=== PATIENT | female | born 1945 | race Caucasian/White ===

== ENCOUNTER 2017-01-31 11:59 | Emergency (ER) | payer MEDICARE, OTHER ==
[~2017-01-31] VITALS: Ht 154.9 cm; Wt 68.0 kg
[~2017-01-31 11:59] MED LIST: ASPI81TA85 PO; CALCTAB7 PO; CELE40TA PO; FISH120012 PO; HYZA50TA2 PO; MULTCAP11 PO; PRAV80TA PO; VITA400C35 PO; VITA500046 PO; VITA500C24 PO; VITATAB11 PO
[2017-01-31] MEDS ORDERED: NS 1,000 ML IV SCH (12:21)
[2017-01-31] MEDS ORDERED: NS 500 ML IV ONE (12:30)
[2017-01-31 13:09] LABS: BASO % 0.3 % (0.0-1.0); EOS # 0.1 K/mm3 (0.0-0.50); EOS % 0.9 % (0.0-3.0); LARGE UNSTAINED CELL # 0.1 K/mm3 (0.0-0.4); LARGE UNSTAINED CELL % 1.8 % (0.0-4.0); LYMPH # 1.1 K/mm3 (1.5-4.5); LYMPH % 16.4 % (24.0-44.0); MEAN CORPUSCULAR HEMOGLOBIN 34.5 pg (27.0-33.0); MEAN CORPUSCULAR HGB CONC 33.7 g/dl (32.0-36.5); MEAN CORPUSCULAR VOLUME 102.6 fl (80.0-96.0); MONO # 0.5 K/mm3 (0.0-0.8); MONO % 7.8 % (0.0-5.0); NEUTROPHILS # 4.8 K/mm3 (1.8-7.7); NEUTROPHILS % 72.8 % (36.0-66.0); PLATELET COUNT, AUTOMATED 231 k/mm3 (150-450); RED CELL DISTRIBUTION WIDTH 12.5 % (11.5-14.5); WHITE BLOOD COUNT 6.5 K/mm3 (4.0-10.0)
--- NOTE | 2017-01-31 13:34 | REP ---
PA and lateral chest: Comparison is the 11/26/2010. Lung hall are clear. Cardiac size is normal. The min, mediastinum, bony thorax unremarkable. There is a large hiatal hernia. Impression: No acute cardiopulmonary findings. Large hiatal hernia. Signed by Matteo Ramirez MD 01/31/2017 01:25 P
--- NOTE | 2017-01-31 13:36 | REP ---
CT of the brain without IV contrast: There are no comparisons. There is no hemorrhage. The cortical stripe is unremarkable. The ventricles are normal size and midline. There is no edema, mass effect or midline shift. The visualized paranasal sinuses and mastoid cells are clear. Impression: There is no hemorrhage, acute infarct or mass. Negative CT study of the brain. Signed by Matteo Ramirez MD 01/31/2017 01:28 P
[2017-01-31 13:50] LABS: ALBUMIN 3.7 GM/DL (3.2-5.2); ALBUMIN/GLOBULIN RATIO 0.95 (1.00-1.93); ALKALINE PHOSPHATASE 68 U/L (45-117); ALT/SGPT 32 U/L (12-78); ANION GAP 8 MEQ/L (8-16); AST/SGOT 34 U/L (15-37); BILIRUBIN,DIRECT 0.1 MG/DL (0.0-0.2); BILIRUBIN,TOTAL 0.4 MG/DL (0.2-1.0); BLOOD UREA NITROGEN 14 MG/DL (7-18); CALCIUM LEVEL 8.8 MG/DL (8.8-10.2); CARBON DIOXIDE LEVEL 30 MEQ/L (21-32); CHLORIDE LEVEL 100 MEQ/L (98-107); CREATININE FOR GFR 0.72 MG/DL (0.55-1.02); GLOMERULAR FILTRATION RATE > 60.0 (>45); GLUCOSE, FASTING 97 MG/DL (80-110); POTASSIUM SERUM 4.1 MEQ/L (3.5-5.1); SODIUM LEVEL 138 MEQ/L (136-145); TOTAL PROTEIN 7.6 GM/DL (6.4-8.2)
[2017-01-31 14:34] VITALS: BP 180/72
--- NOTE | 2017-02-01 07:20 | ECGEPIP ---
Stationary ECG Study [facility] - ED Test Date: 2017-01-31 Pat Name: KRISTEN HOFFMAN Department: Room: - Gender: F [employer]: ILIA : 1945 Requested By: NINFA PETERSON Order Number: [id number] Reading MD: Tasha Carias Measurements Intervals [place] Rate: 61 P: 53 WV: 160 QRS: 2 QRSD: 77 T: 9 QT: 419 QTc: 423 Interpretive Statements SINUS RHYTHM NO PRIOR FOR COMPARISON Electronically Signed On 02-01-2017 7:20:26 EDT by Tasha Carias
== END 2017-01-31 14:35 | disposition home or self-care (01) ==
LOC: M ED 13:03
DX: R41.0 Disorientation, unspecified (principal)
CPT/HCPCS: 70450; 71020; 80048; 80076; 81001; 82550; 82553; 84443; 84484; 85025; 87086; 93005; 93041; 94760; 99284; G0480

== ENCOUNTER → 2017-07-16 | Outpatient (REF) | payer MEDICARE, OTHER ==
[2017-07-16 13:31] LABS: ALBUMIN 3.7 GM/DL (3.2-5.2); ALBUMIN/GLOBULIN RATIO 0.95 (1.00-1.93); ALKALINE PHOSPHATASE 67 U/L (45-117); ALT/SGPT 32 U/L (12-78); ANION GAP 11 MEQ/L (8-16); AST/SGOT 37 U/L (15-37); BILIRUBIN,TOTAL 0.4 MG/DL (0.2-1.0); BLOOD UREA NITROGEN 12 MG/DL (7-18); CALCIUM LEVEL 9.4 MG/DL (8.8-10.2); CARBON DIOXIDE LEVEL 27 MEQ/L (21-32); CHLORIDE LEVEL 103 MEQ/L (98-107); CREATININE FOR GFR 0.57 MG/DL (0.55-1.02); FREE T4 0.89 NG/DL (0.76-1.46); GLOMERULAR FILTRATION RATE > 60.0 (>39); GLUCOSE, FASTING 78 MG/DL (83-110); POTASSIUM SERUM 4.4 MEQ/L (3.5-5.1); SODIUM LEVEL 141 MEQ/L (136-145); TOTAL PROTEIN 7.6 GM/DL (6.4-8.2)
== END ==
LOC: M SFHCPLAZ 08:37
PROVIDERS: ATTEND Nurse Practitioner Family
DX: I10 Essential (primary) hypertension (principal); F41.1 Generalized anxiety disorder; E78.2 Mixed hyperlipidemia; E55.9 Vitamin D deficiency, unspecified

== ENCOUNTER → 2017-07-22 | Outpatient (CLI) | payer MEDICARE, OTHER ==
--- NOTE | 2017-07-22 13:17 | REP ---
Bilateral screening digital mammogram: TE 29 T 26 July 31, 2017. Comparison is 07/15/2016. There is focally dense breast parenchyma in the subareolar zones. The parenchyma is otherwise predominantly adipose. This is unchanged. Code T12. Impression: There is no evidence of malignancy. BIRADS category one negative mammogram. T1 T 25 T 20 Patient letter M1 Dense breasts. Signed by Matteo Ramirez MD 07/22/2017 01:08 P
== END ==
LOC: M WHC 11:22
PROVIDERS: ATTEND Nurse Practitioner Family
DX: Z12.31 Encounter for screening mammogram for malignant neoplasm of breast (principal); E65 Localized adiposity

== ENCOUNTER → 2018-01-12 | Outpatient (REF) | payer MEDICARE, OTHER ==
[2018-01-12 12:35] LABS: ALBUMIN/GLOBULIN RATIO 1.03 (1.00-1.93); ALKALINE PHOSPHATASE 59 U/L (45-117); ALT/SGPT 33 U/L (12-78); ANION GAP 9 MEQ/L (8-16); AST/SGOT 40 U/L (7-37); BILIRUBIN,TOTAL 0.4 MG/DL (0.2-1.0); BLOOD UREA NITROGEN 11 MG/DL (7-18); CALCIUM LEVEL 9.2 MG/DL (8.8-10.2); CARBON DIOXIDE LEVEL 29 MEQ/L (21-32); CHLORIDE LEVEL 102 MEQ/L (98-107); CREATININE FOR GFR 0.65 MG/DL (0.55-1.30); GLOMERULAR FILTRATION RATE > 60.0 (>39); GLUCOSE, FASTING 84 MG/DL (70-100); POTASSIUM SERUM 4.3 MEQ/L (3.5-5.1); SODIUM LEVEL 140 MEQ/L (136-145); TOTAL PROTEIN 7.9 GM/DL (6.4-8.2)
== END ==
LOC: M SFHCPLAZ 08:53
DX: I10 Essential (primary) hypertension (principal); E55.9 Vitamin D deficiency, unspecified
CPT/HCPCS: 80053

== ENCOUNTER → 2018-07-20 | Outpatient (REF) | payer MEDICARE, OTHER ==
[2018-07-20 11:33] LABS: ALBUMIN 3.8 GM/DL (3.2-5.2); ALBUMIN/GLOBULIN RATIO 0.97 (1.00-1.93); ALKALINE PHOSPHATASE 64 U/L (45-117); ALT/SGPT 36 U/L (12-78); ANION GAP 8 MEQ/L (8-16); AST/SGOT 47 U/L (7-37); BILIRUBIN,TOTAL 0.5 MG/DL (0.2-1.0); BLOOD UREA NITROGEN 13 MG/DL (7-18); CALCIUM LEVEL 9.1 MG/DL (8.8-10.2); CARBON DIOXIDE LEVEL 29 MEQ/L (21-32); CHLORIDE LEVEL 101 MEQ/L (98-107); CHOLESTEROL LEVEL 224 MG/DL (<200); CHOLESTEROL RISK RATIO 2.488 (<5); CREATININE FOR GFR 0.67 MG/DL (0.55-1.30); GLOMERULAR FILTRATION RATE > 60.0 (>39); GLUCOSE, FASTING 84 MG/DL (70-100); HDL CHOLESTEROL 90 MG/DL (>40); LDL CHOLESTEROL 107 MG/DL (<100); NON-HDL-C 134 MG/DL; POTASSIUM SERUM 4.2 MEQ/L (3.5-5.1); SODIUM LEVEL 138 MEQ/L (136-145); TOTAL PROTEIN 7.7 GM/DL (6.4-8.2); TRIGLYCERIDES LEVEL 137 MG/DL (<150)
[2018-07-20 12:03] LABS: TOTAL 25(OH) VITAMIN D 52.6 NG/ML (30.0-100.0)
== END ==
LOC: M SFHCPLAZ 08:50
DX: I10 Essential (primary) hypertension (principal); E55.9 Vitamin D deficiency, unspecified
CPT/HCPCS: 80053

== ENCOUNTER → 2018-08-04 | Outpatient (CLI) | payer MEDICARE, OTHER | LOC: M WHC 10:04 | DX: Z12.31 Encounter for screening mammogram for malignant neoplasm of breast (principal); Z80.0 Family history of malignant neoplasm of digestive organs | CPT/HCPCS: 77067 ==

== ENCOUNTER → 2019-02-01 | Outpatient (REF) | payer MEDICARE, OTHER ==
[2019-02-01 12:34] LABS: ALBUMIN 3.8 GM/DL (3.2-5.2); ALT/SGPT 31 U/L (12-78); BILIRUBIN,TOTAL 0.4 MG/DL (0.2-1.0); BLOOD UREA NITROGEN 13 MG/DL (7-18); CALCIUM LEVEL 9.1 MG/DL (8.8-10.2); CARBON DIOXIDE LEVEL 29 MEQ/L (21-32); CHLORIDE LEVEL 103 MEQ/L (98-107); CREATININE FOR GFR 0.65 MG/DL (0.55-1.30); FREE T4 0.89 NG/DL (0.76-1.46); GLOMERULAR FILTRATION RATE > 60.0 (>39); GLUCOSE, FASTING 86 MG/DL (70-100); POTASSIUM SERUM 4.4 MEQ/L (3.5-5.1); SODIUM LEVEL 138 MEQ/L (136-145); TOTAL PROTEIN 7.5 GM/DL (6.4-8.2)
[2019-02-01 12:35] LABS: TOTAL 25(OH) VITAMIN D 53.1 NG/ML (30.0-100.0)
== END ==
LOC: M SFHCPLAZ 08:50
PROVIDERS: ATTEND Nurse Practitioner Family
DX: I10 Essential (primary) hypertension (principal); E78.2 Mixed hyperlipidemia; E55.9 Vitamin D deficiency, unspecified

== ENCOUNTER 2019-07-01 12:29 | Day surgery (SDC) | payer MEDICARE, OTHER ==
[~2019-07-01] VITALS: Ht 154.9 cm; Wt 68.0 kg
[~2019-07-01 12:29] MED LIST changes: +B COTAB3 PO; +CHOL100029 PO; +KP F1200 PO; +MULTCAP PO; +VENL75TA2 PO; +VITA-157 PO
[2019-07-01] MEDS: NS 1,000 ML IV ONE (14:02)
[2019-07-01] MEDS ORDERED: LIDOCAINE 2% INJ 100 MG/5 ML SDV (FOR ANES.) As Ordered ONE (14:06)
[2019-07-01] MEDS ORDERED: PROPOFOL 200 MG/20 ML VIAL As Ordered ONE ×3 (14:06→14:47)
--- NOTE | 2019-07-01 14:58 | ROOR ---
Patient Name: Sydnie Heredia Procedure Date: 07/01/2019 2:18 PM Date of : 1945 Age: 74 Room: [facility] Gender: Female Note Status: Finalized Procedure: Colonoscopy Indications: High risk colon cancer surveillance: Personal history of non-advanced adenoma, Last colonoscopy: March 2016 Providers: Rakan Fairbanks MD Referring MD: Lindsay Pablo NP Requesting Provider: Medicines: Monitored Anesthesia Care Complications: No immediate complications. Procedure: Pre-Anesthesia Assessment: - Prior to the procedure, a History and Physical was performed, and patient medications and allergies were reviewed. The patient is competent. The risks and benefits of the procedure and the sedation options and risks were discussed with the patient. All questions were answered and informed consent was obtained. Patient identification and proposed procedure were verified by the physician, the nurse and the anesthesiologist in the procedure room. Mental Status Examination: alert and oriented. CV Examination: regular rate and rhythm. Prophylactic Antibiotics: The patient does not require prophylactic antibiotics. Prior Anticoagulants: The patient has taken no previous anticoagulant or antiplatelet agents. ASA Grade Assessment: II - A patient with mild systemic disease. After reviewing the risks and benefits, the patient was deemed in satisfactory condition to undergo the procedure. The anesthesia plan was to use monitored anesthesia care (MAC). Immediately prior to administration of medications, the patient was re-assessed for adequacy to receive sedatives. The heart rate, respiratory rate, oxygen saturations, blood pressure, adequacy of pulmonary ventilation, and response to care were monitored throughout the procedure. The physical status of the patient was re-assessed after the procedure. The Colonoscope was introduced through the anus and advanced to the cecum, identified by appendiceal orifice and ileocecal valve. The colonoscopy was performed without difficulty. The patient tolerated the procedure well. The quality of the bowel preparation was excellent. Findings: The perianal and digital rectal examinations were normal. The colon (entire examined portion) appeared normal. Impression: - The entire examined colon is normal. - No specimens collected. Recommendation: - Discharge patient to home. - Resume previous diet. - Continue present medications. Rakan Fairbanks MD Rakan Fairbanks MD 07/01/2019 2:58:10 PM Electronically signed by Rakan Fairbanks MD Number of Addenda: 0 Note Initiated On: 07/01/2019 2:18 PM Estimated Blood Loss: Estimated blood loss: none.
[2019-07-01 15:05] VITALS: BP 123/61
== END 2019-07-01 15:17 | disposition home or self-care (01) ==
LOC: M OPP 12:29
PROVIDERS: ATTEND Surgery
DX: Z12.11 Encounter for screening for malignant neoplasm of colon (principal); Z86.010 Personal history of colon polyps; Z80.0 Family history of malignant neoplasm of digestive organs; Z79.899 Other long term (current) drug therapy; Z88.8 Allergy status to other drugs, medicaments and biological substances; Z87.891 Personal history of nicotine dependence

== ENCOUNTER → 2019-07-26 | Outpatient (REF) | payer MEDICARE, OTHER ==
[2019-07-26 13:02] LABS: ALBUMIN 3.7 GM/DL (3.2-5.2); ALT/SGPT 40 U/L (12-78); BILIRUBIN,TOTAL 0.5 MG/DL (0.2-1.0); BLOOD UREA NITROGEN 10 MG/DL (7-18); CALCIUM LEVEL 9.7 MG/DL (8.8-10.2); CARBON DIOXIDE LEVEL 26 MEQ/L (21-32); CHLORIDE LEVEL 104 MEQ/L (98-107); CHOLESTEROL LEVEL 238 MG/DL (<200); CHOLESTEROL RISK RATIO 2.404 (<5); CREATININE FOR GFR 0.66 MG/DL (0.55-1.30); GLOMERULAR FILTRATION RATE > 60.0 (>39); GLUCOSE, FASTING 78 MG/DL (70-100); HDL CHOLESTEROL 99 MG/DL (>40); LDL CHOLESTEROL 110 MG/DL (<100); NON-HDL-C 139 MG/DL; SODIUM LEVEL 138 MEQ/L (136-145); TOTAL PROTEIN 7.7 GM/DL (6.4-8.2); TRIGLYCERIDES LEVEL 143 MG/DL (<150); URIC ACID 5.7 MG/DL (2.6-6.0)
[2019-07-26 13:19] LABS: MAU/CREAT RATIO 20.4 MCG/MG (0.0-30.0)
== END ==
LOC: M SFHCPLAZ 08:41
PROVIDERS: ATTEND Nurse Practitioner Family
DX: I10 Essential (primary) hypertension (principal); E78.2 Mixed hyperlipidemia; M79.675 Pain in left toe(s)

== ENCOUNTER → 2019-08-03 | Outpatient (REF) | payer MEDICARE, OTHER ==
[2019-08-03 14:08] LABS: BLOOD UREA NITROGEN 11 MG/DL (7-18); CALCIUM LEVEL 9.7 MG/DL (8.8-10.2); CARBON DIOXIDE LEVEL 28 MEQ/L (21-32); CHLORIDE LEVEL 102 MEQ/L (98-107); CREATININE FOR GFR 0.69 MG/DL (0.55-1.30); GLOMERULAR FILTRATION RATE > 60.0 (>39); GLUCOSE, FASTING 90 MG/DL (70-100); POTASSIUM SERUM 3.9 MEQ/L (3.5-5.1); SODIUM LEVEL 137 MEQ/L (136-145)
[2019-08-03 14:13] LABS: OSMOLALITY SERUM 289 MOSM/KG (280-301)
== END ==
LOC: M SFHCPLAZ 11:45
PROVIDERS: ATTEND Family Medicine
DX: R19.7 Diarrhea, unspecified (principal)
CPT/HCPCS: 36415; 80048; 83930; G0463

== ENCOUNTER → 2019-08-10 | Outpatient (REF) | payer MEDICARE, OTHER ==
[2019-08-10 12:27] LABS: CLOSTRIDIUM DIFFICILE PCR NEGATIVE (NEGATIVE)
== END ==
LOC: M SFHCPLAZ 09:44
PROVIDERS: ATTEND Family Medicine
DX: R19.7 Diarrhea, unspecified (principal)

== ENCOUNTER → 2019-08-17 | Outpatient (CLI) | payer MEDICARE, OTHER ==
--- NOTE | 2019-08-17 14:38 | REP ---
Left foot series: Four views. History: Contusion. Findings: Four views of the left foot demonstrate diffuse forefoot swelling. There is a nondisplaced fracture through the proximal end of the first metatarsal. There are transverse nondisplaced fractures of the proximal ends of the second, third, fourth metatarsals. There is also a transversely oriented minimally displaced fracture through the distal end of the second metatarsal. There is a acute slightly impacted fracture of the fifth proximal phalanx. No tarsal bone fracture is seen. Impression: Multiple fractures including first, second, third, and fourth proximal metatarsals as well as the fifth proximal phalanx and the 2nd distal metatarsal. Electronically Signed by Fernie Marlow MD 08/17/2019 02:30 P
--- NOTE | 2019-08-17 14:39 | REP ---
Left ankle: Four views. History: Contusion. Findings: Four views left ankle demonstrate diffuse soft tissue swelling particularly laterally. Ankle mortise is intact. There is a tiny accessory ossicle adjacent to the medial malleolus. No ankle fractures seen. Midfoot swelling is noted. Impression: Diffuse soft tissue swelling. No ankle fracture seen. Electronically Signed by Fernie Marlow MD 08/17/2019 02:31 P
== END ==
LOC: M WUC 10:14
PROVIDERS: ATTEND Physician Assistant
DX: S92.315A Nondisplaced fracture of first metatarsal bone, left foot, initial encounter for closed fracture (principal); S92.325A Nondisplaced fracture of second metatarsal bone, left foot, initial encounter for closed fracture; S92.335A Nondisplaced fracture of third metatarsal bone, left foot, initial encounter for closed fracture; S92.345A Nondisplaced fracture of fourth metatarsal bone, left foot, initial encounter for closed fracture; S92.322A Displaced fracture of second metatarsal bone, left foot, initial encounter for closed fracture; S92.592A Other fracture of left lesser toe(s), initial encounter for closed fracture; X58.XXXA Exposure to other specified factors, initial encounter; Y92.9 Unspecified place or not applicable; M25.472 Effusion, left ankle; S90.32XA Contusion of left foot, initial encounter; S90.02XA Contusion of left ankle, initial encounter

== ENCOUNTER → 2019-10-06 | Outpatient (CLI) | payer MEDICARE, OTHER ==
--- NOTE | 2019-10-06 14:35 | REPMRS ---
Patient History The patient states she had a clinical breast exam in August 2019.Family history of colorectal cancer at age 89 in mother. 3D TOMOSYNTHESIS WAS PERFORMED. [facility] for [facility] 3.7%. Digital Woman Screen Mammo: October 06, 2019 - Exam #: [id number] Bilateral CC and MLO view(s) were taken. Technologist: Rach Farnsworth, Technologist Prior study comparison: August 04, 2018, bilateral digital woman screen mammo performed at [facility], [place]. July 22, 2017, digital woman screen mammo performed at [facility], [place]. FINDINGS: There are scattered fibroglandular densities. There has been no change in the appearance of the mammogram from the prior studies. There is a mild amount of residual fibroglandular tissue which is fairly symmetric. There is no interval development of dominant mass, architectural distortion, or clustered microcalcification suggestive of malignancy. Assessment: BI-RADS/ACR category 1 mammogram. Negative Mammogram. Recommendation Routine screening mammogram in 1 year (for women over age 40). This mammogram was interpreted with the aid of an FDA-approved computer-aided dectection system. Electronically Signed By: Matteo Daniels MD 10/06/19 [id number]
--- NOTE | 2019-10-10 13:11 | DEXA ---
AP SPINE L1 - L4 1.284 0.7 2.4 LT FEMUR TOTAL 1.010 0.0 1.6 LT NECK 0.870 -1.2 0.6 RT FEMUR TOTAL 1.037 0.2 1.8 RT NECK 0.906 -1.0 0.9 TOTAL BODY TOTAL OTHER COMMENTS: Normal bone densitometry of the spine. There is low bone density of the hips. The increased density of the spine does represent a significant change. The increased density of the left hip does represent a significant change. The decreased density of the right hip does not represent a significant change. The density of the spine has increased 7.4% since the initial exam on 03/03/2002. The spine density has increased 5.0% since the most recent exam on 07/07/2014. The density of the left hip has increased 10.6% since the initial exam on 03/03/2002. The density of the left hip has increased 2.3% since the most recent exam on 07/07/2014. The density of the right hip has increased 12.4% since the initial exam on 03/03/2002. The density of the right hip has decreased 1.0% since the most recent exam on 07/07/2014. FOLLOW-UP: Recommendation for the next bone density exam: 2 years. TEZ
== END ==
LOC: M WHC 13:42
PROVIDERS: ATTEND Nurse Practitioner Family
DX: Z12.31 Encounter for screening mammogram for malignant neoplasm of breast (principal); M85.9 Disorder of bone density and structure, unspecified

== ENCOUNTER → 2020-02-24 | Outpatient (REF) | payer MEDICARE, OTHER ==
[2020-02-24 10:56] LABS: ALBUMIN 3.7 GM/DL (3.2-5.2); ALT/SGPT 50 U/L (12-78); BILIRUBIN,TOTAL 0.5 MG/DL (0.2-1.0); BLOOD UREA NITROGEN 10 MG/DL (7-18); CALCIUM LEVEL 9.4 MG/DL (8.8-10.2); CARBON DIOXIDE LEVEL 28 MEQ/L (21-32); CHLORIDE LEVEL 102 MEQ/L (98-107); GLOMERULAR FILTRATION RATE > 60.0 (>39); GLUCOSE, FASTING 82 MG/DL (70-100); POTASSIUM SERUM 4.6 MEQ/L (3.5-5.1); SODIUM LEVEL 137 MEQ/L (136-145)
== END ==
LOC: M SFHCPLAZ 08:42
PROVIDERS: ATTEND Nurse Practitioner Family
DX: I10 Essential (primary) hypertension (principal)

== ENCOUNTER → 2020-08-29 | Outpatient (REF) | payer MEDICARE ==
[~2020-08-29] MED LIST changes: -ASPI81TA85 PO; +ASPI81TA86 PO; +CALC-211 PO; -CALCTAB7 PO
[2020-08-29 14:02] LABS: ALBUMIN 3.9 GM/DL (3.2-5.2); ALT/SGPT 34 U/L (12-78); BILIRUBIN,TOTAL 0.5 MG/DL (0.2-1.0); BLOOD UREA NITROGEN 14 MG/DL (7-18); CARBON DIOXIDE LEVEL 28 MEQ/L (21-32); CHLORIDE LEVEL 104 MEQ/L (98-107); CHOLESTEROL LEVEL 228 MG/DL (<200); CREATININE FOR GFR 0.72 MG/DL (0.55-1.30); GLOMERULAR FILTRATION RATE > 60.0 (>39); GLUCOSE, FASTING 88 MG/DL (70-100); HDL CHOLESTEROL 76 MG/DL (>40); LDL CHOLESTEROL 118 MG/DL (<100); NON-HDL-C 152 MG/DL; POTASSIUM SERUM 4.3 MEQ/L (3.5-5.1); SODIUM LEVEL 139 MEQ/L (136-145); TOTAL PROTEIN 7.8 GM/DL (6.4-8.2); TRIGLYCERIDES LEVEL 169 MG/DL (<150)
== END ==
LOC: M PLALAB 09:18
PROVIDERS: ATTEND Nurse Practitioner Family
DX: R79.89 Other specified abnormal findings of blood chemistry (principal); E78.2 Mixed hyperlipidemia; E55.9 Vitamin D deficiency, unspecified

== ENCOUNTER → 2020-11-26 | Outpatient (REF) | payer MEDICARE ==
[2020-11-26 14:40] LABS: BLOOD UREA NITROGEN 12 MG/DL (7-18); CALCIUM LEVEL 10.4 MG/DL (8.8-10.2); CARBON DIOXIDE LEVEL 31 MEQ/L (21-32); CHLORIDE LEVEL 98 MEQ/L (98-107); CREATININE FOR GFR 0.78 MG/DL (0.55-1.30); GLOMERULAR FILTRATION RATE > 60.0 (>39); GLUCOSE, FASTING 96 MG/DL (70-100); POTASSIUM SERUM 4.5 MEQ/L (3.5-5.1); SODIUM LEVEL 137 MEQ/L (136-145)
== END ==
LOC: M PLALAB 10:16
PROVIDERS: ATTEND Nurse Practitioner Family
DX: I10 Essential (primary) hypertension (principal)

== ENCOUNTER → 2021-02-14 | Outpatient (REF) | payer MEDICARE ==
[~2021-02-14] MED LIST changes: -VITA-157 PO; +VITAE40CA PO
[2021-02-14 13:31] LABS: ALT/SGPT 31 U/L (12-78); BLOOD UREA NITROGEN 15 MG/DL (7-18); CALCIUM LEVEL 9.7 MG/DL (8.8-10.2); CARBON DIOXIDE LEVEL 29 MEQ/L (21-32); CHLORIDE LEVEL 102 MEQ/L (98-107); CREATININE FOR GFR 0.76 MG/DL (0.55-1.30); GLOMERULAR FILTRATION RATE > 60.0 (>39); GLUCOSE, FASTING 97 MG/DL (70-100); POTASSIUM SERUM 4.2 MEQ/L (3.5-5.1); SODIUM LEVEL 137 MEQ/L (136-145)
[2021-02-14 13:32] LABS: ALBUMIN 3.7 GM/DL (3.2-5.2); BILIRUBIN,TOTAL 0.5 MG/DL (0.2-1.0); TOTAL PROTEIN 7.4 GM/DL (6.4-8.2)
[2021-02-14 13:35] LABS: CREATININE, URINE 28.6 MG/DL; MALB URINE SIEMENS 5.4 MG/L; MAU/CREAT RATIO 18.8 MCG/MG (0.0-30.0)
== END ==
LOC: M PLALAB 09:35
PROVIDERS: ATTEND Nurse Practitioner Family
DX: I10 Essential (primary) hypertension (principal)

== ENCOUNTER → 2022-03-03 | Outpatient (CLI) | payer MEDICARE ==
[~2022-03-03] MED LIST changes: +BISO5TAB14 PO; +LOSA100T5 PO
== END ==
LOC: M WUC 08:39
PROVIDERS: ATTEND Internal Medicine
DX: J98.11 Atelectasis (principal); R05.9 Cough, unspecified; J90 Pleural effusion, not elsewhere classified

== ENCOUNTER → 2022-03-05 | Outpatient (REF) | payer MEDICARE ==
[~2022-03-05] MED LIST changes: -BISO5TAB14 PO; -LOSA100T5 PO
[2022-03-05 12:50] LABS: INR 0.97; PROTHROMBIN TIME 13.3 SECONDS (12.7-14.5)
[2022-03-05 12:51] LABS: PARTIAL THROMBOPLASTIN TIME 32.9 SECONDS (25.9-37.0)
== END ==
LOC: M LAB REF 12:26
PROVIDERS: ATTEND Internal Medicine
DX: J90 Pleural effusion, not elsewhere classified (principal)

== ENCOUNTER → 2022-03-12 | Outpatient (CLI) | payer MEDICARE ==
[~2022-03-12] MED LIST changes: +BISO5TAB14 PO; +LOSA100T5 PO
[2022-03-12 13:30] VITALS: BP 116/73
[2022-03-12 13:45] LABS: SOURCE, BODY FLUID pH PLEURAL
[2022-03-12 14:06] LABS: LDH, BODY FLUID 824 U/L (NOT ESTABLISHED); SOURCE, BODY FLUID GLUCOSE PLEURAL; SOURCE, BODY FLUID LDH PLEURAL; SOURCE, BODY FLUID TOT PROTEIN PLEURAL; TOTAL PROTEIN, BODY FLUID 5.6 G/DL (NOT ESTABLISHED)
[2022-03-12 14:09] LABS: APPEARANCE, BODY FLUID HAZY (CLEAR); PLEURAL FL COLOR YELLOW (COLORLESS); SOURCE, BODY FLUID PLEURAL
== END ==
LOC: M IRPRO 10:01
PROVIDERS: ATTEND Internal Medicine
DX: J90 Pleural effusion, not elsewhere classified (principal)

== ENCOUNTER → 2022-03-19 | Outpatient (CLI) | payer MEDICARE ==
[~2022-03-19] MED LIST changes: +ISOVUE-370 76% 100ML VIAL ONE
== END ==
LOC: M PLAIMG 13:39
PROVIDERS: ATTEND Internal Medicine
DX: C34.91 Malignant neoplasm of unspecified part of right bronchus or lung (principal)
CPT/HCPCS: 71260; Q9967

== ENCOUNTER 2022-03-27 09:02 | Inpatient (IN) | payer MEDICARE ==
[2022-03-27] VITALS (15 sets, daily range): BP systolic 106–163; BP diastolic 57–83
[~2022-03-27 09:02] MED LIST changes: -ISOVUE-370 76% 100ML VIAL ONE; +PRAV80TA2 PO; +PRES10CA2 PO
[2022-03-27] MEDS ORDERED: ACETAMINOPHEN TAB 650MG DOSE (2X325MG) PO PRN (10:15)
[2022-03-27] MEDS ORDERED: HOME MED LIST COMPLETE! XX SCH ×2 (10:50→11:25)
[2022-03-27] MEDS ORDERED: VENL75CA2 PO (11:22)
[2022-03-27 11:35] LABS: HEMATOCRIT 45.9 % (36.0-47.0); HEMOGLOBIN 15.5 g/dl (12.0-15.5); MEAN CORPUSCULAR HGB CONC 33.8 g/dl (32.0-36.5); MEAN CORPUSCULAR VOLUME 97.9 fl (80.0-96.0); PLATELET COUNT, AUTOMATED 339 10^3/uL (150-450); RED BLOOD COUNT 4.69 10^6/uL (4.00-5.40); WHITE BLOOD COUNT 9.1 10^3/uL (4.0-10.0)
[2022-03-27 11:46] LABS: INR 1.02; PROTHROMBIN TIME 13.8 SECONDS (12.7-14.5)
[2022-03-27 11:47] LABS: PARTIAL THROMBOPLASTIN TIME 36.4 SECONDS (25.9-37.0)
[2022-03-27 12:09] LABS: ALT/SGPT 21 U/L (12-78); BILIRUBIN,TOTAL 0.5 MG/DL (0.2-1.0); BLOOD UREA NITROGEN 6 MG/DL (7-18); CALCIUM LEVEL 8.7 MG/DL (8.8-10.2); CARBON DIOXIDE LEVEL 29 MEQ/L (21-32); CHLORIDE LEVEL 96 MEQ/L (98-107); CREATININE FOR GFR 0.58 MG/DL (0.55-1.30); GLOMERULAR FILTRATION RATE > 60.0 (>39); GLUCOSE, FASTING 94 MG/DL (70-100); POTASSIUM SERUM 4.1 MEQ/L (3.5-5.1); SODIUM LEVEL 134 MEQ/L (136-145); TOTAL PROTEIN 7.4 GM/DL (6.4-8.2)
[2022-03-27] MEDS ORDERED: ALBUTEROL SULFATE 2.5 MG/0.5 ML INH NEB SOLN NEB PRN (12:35)
[2022-03-27] MEDS ORDERED: flumazeniL 0.5 MG/5 ML VIAL As Ordered ONE (17:09)
[2022-03-27] MEDS ORDERED: MIDAZOLAM INJ 2MG/2ML VIAL (J2250 PER 1MG) As Ordered ONE (17:10)
[2022-03-27] MEDS ORDERED: LIDOCAINE 1% MDV 20ML VIAL As Ordered ONE (17:11)
[2022-03-27] MEDS ORDERED: MIDAZOLAM INJ 2MG/2ML VIAL (J2250 PER 1MG) IV ONE (17:34)
[2022-03-27] MEDS ORDERED: LIDOCAINE 1% MDV 20ML VIAL SC ONE (17:40)
[2022-03-27] MEDS ORDERED: NORCO, ANEXSIA 5/325MG TABLET (HYDROcodone/ACETAMINOPHEN) PO PRN (18:35)
[2022-03-27] MEDS ORDERED: ONDANSETRON 4MG/2ML VIAL IV PRN (18:35)
[2022-03-27] MEDS ORDERED: PERCOCET 5MG/325MG TAB PO PRN (18:35)
[2022-03-27] MEDS ORDERED: BISACODYL 10 MG SUPP PR PRN (18:35)
[2022-03-27] MEDS ORDERED: LEVALBUTEROL 1.25 MG/0.5 ML CONCENTRATE NEB NEB PRN (18:35)
[2022-03-27 19:22] LABS: LDH LACTATE DEHYDROGENASE 339 U/L (84-246)
[2022-03-27] MEDS: DOCUSATE SODIUM 100MG CAPSULE PO SCH (19:50)
[2022-03-27] MEDS: KETOROLAC 30 MG/ML 1ML VIAL IV SCH (19:51)
[2022-03-27 19:54] LABS: PH BODY FLUID 7.503 UNITS (NOT ESTABLISHED); SOURCE, BODY FLUID pH PLEURAL
[2022-03-27 20:21] LABS: AMYLASE, BODY FLUID 85 U/L (NOT ESTABLISHED); CHOLESTEROL, BODY FLUID 100 MG/DL (NOT ESTABLISHED); LDH, BODY FLUID 870 U/L (NOT ESTABLISHED); SOURCE, BODY FLUID ALBUMIN PLEURAL; SOURCE, BODY FLUID AMYLASE PLEURAL; SOURCE, BODY FLUID CHOL PLEURAL; SOURCE, BODY FLUID GLUCOSE PLEURAL; SOURCE, BODY FLUID LDH PLEURAL; SOURCE, BODY FLUID TOT PROTEIN PLEURAL; SOURCE, BODY FLUID TRIG PLEURAL; TOTAL PROTEIN, BODY FLUID 5.5 G/DL (NOT ESTABLISHED); TRIGLYCERIDE, BODY FLUID 35 MG/DL (NOT ESTABLISHED)
[2022-03-27] MEDS: LEVALBUTEROL 1.25 MG/0.5 ML CONCENTRATE NEB NEB SCH (20:21)
[2022-03-27 20:23] LABS: APPEARANCE, BODY FLUID CLOUDY (CLEAR); PLEURAL FL COLOR AMBER (COLORLESS); SOURCE, BODY FLUID PLEURAL
[2022-03-27] MEDS ORDERED: PRAVASTATIN 20 MG TAB PO SCH (21:00)
[2022-03-27] MEDS ORDERED: bisoproloL fumarate 5 MG TAB PO SCH (21:00)
[2022-03-27] MEDS ORDERED: RAMELTEON 8 MG TAB (ROZEREM) PO PRN (21:15)
[2022-03-28] VITALS: BP 108/56
[2022-03-28] MEDS: LEVALBUTEROL 1.25 MG/0.5 ML CONCENTRATE NEB NEB SCH ×2 (01:01→08:00)
[2022-03-28 04:00] VITALS: BP 116/66
[2022-03-28 05:25] LABS: HEMATOCRIT 40.6 % (36.0-47.0); HEMOGLOBIN 13.6 g/dl (12.0-15.5); MEAN CORPUSCULAR HEMOGLOBIN 33.3 pg (27.0-33.0); MEAN CORPUSCULAR HGB CONC 33.5 g/dl (32.0-36.5); MEAN CORPUSCULAR VOLUME 99.3 fl (80.0-96.0); PLATELET COUNT, AUTOMATED 307 10^3/uL (150-450); RED BLOOD COUNT 4.09 10^6/uL (4.00-5.40); WHITE BLOOD COUNT 7.3 10^3/uL (4.0-10.0)
[2022-03-28 05:50] LABS: ALBUMIN 2.4 GM/DL (3.2-5.2); ALT/SGPT 18 U/L (12-78); BILIRUBIN,TOTAL 0.5 MG/DL (0.2-1.0); BLOOD UREA NITROGEN 17 MG/DL (7-18); CALCIUM LEVEL 8.7 MG/DL (8.8-10.2); CARBON DIOXIDE LEVEL 29 MEQ/L (21-32); CHLORIDE LEVEL 95 MEQ/L (98-107); CREATININE FOR GFR 0.77 MG/DL (0.55-1.30); GLOMERULAR FILTRATION RATE > 60.0 (>39); GLUCOSE, FASTING 97 MG/DL (70-100); SODIUM LEVEL 132 MEQ/L (136-145); TOTAL PROTEIN 6.1 GM/DL (6.4-8.2)
[2022-03-28] MEDS: KETOROLAC 30 MG/ML 1ML VIAL IV SCH ×3 (06:16→11:37)
[2022-03-28 08:00] VITALS: BP 104/59
[2022-03-28] MEDS ORDERED: VENLAFAXINE **XR** 75MG CAPSULE PO SCH (09:00)
[2022-03-28] MEDS: DOCUSATE SODIUM 100MG CAPSULE PO SCH (09:00)
[2022-03-28] MEDS ORDERED: PANTOPRAZOLE 40MG TAB (PROTONIX) PO SCH (09:00)
[2022-03-28] MEDS ORDERED: MOM 30ML SUSPENSION UDC PO SCH (09:00)
[2022-03-28 09:40] LABS: OSMOLALITY URINE 424 MOSM/KG (50-1400)
[2022-03-28 09:54] LABS: SODIUM,RANDOM URINE < 10 MEQ/L
[2022-03-28 12:00] VITALS: BP 101/58
[2022-03-28] MEDS ORDERED: VENTAER INH (12:49)
[2022-03-28] MEDS ORDERED: COLA100C5 PO (12:49)
[2022-03-28] MEDS ORDERED: ACET1TAB55 PO (12:49)
[2022-03-28] MEDS ORDERED: HYDR-3715 PO (12:49)
== END 2022-03-28 13:57 | disposition home health service (06) | DRG 181 ==
LOC: M PCU 10:22
PROVIDERS: ADMIT Internal Medicine; ATTEND Internal Medicine
PROC: 0W9930Z Drainage of Right Pleural Cavity with Drainage Device, Percutaneous Approach (ICD-10-PCS; principal; 2022-03-27)
DX: C34.91 Malignant neoplasm of unspecified part of right bronchus or lung (principal); J91.0 Malignant pleural effusion; E87.1 Hypo-osmolality and hyponatremia; I10 Essential (primary) hypertension; E78.5 Hyperlipidemia, unspecified; F41.9 Anxiety disorder, unspecified; Z90.79 Acquired absence of other genital organ(s); Z87.891 Personal history of nicotine dependence; Z20.822 Contact with and (suspected) exposure to COVID-19; Z79.899 Other long term (current) drug therapy

== ENCOUNTER → 2022-03-31 | Outpatient (CLI) | payer MEDICARE ==
[~2022-03-31] MED LIST changes: +ACET1TAB55 PO; +COLA100C5 PO; +HYDR-3715 PO; +VENL75CA2 PO; +VENTAER INH
== END ==
LOC: M RAD 10:39
PROVIDERS: ATTEND Thoracic Surgery (Cardiothoracic Vascular Surgery)
DX: J90 Pleural effusion, not elsewhere classified (principal)

== ENCOUNTER → 2022-04-07 | Outpatient (CLI) | payer MEDICARE ==
[~2022-04-07] MED LIST changes: +DEXA4TA PO; +FOLI1TAB11 PO; +ONDA-84 PO; +PROC10TA5 PO
== END ==
LOC: M PLARAD 12:11
PROVIDERS: ATTEND Internal Medicine
DX: R91.8 Other nonspecific abnormal finding of lung field (principal)
CPT/HCPCS: 78815; A9552

== ENCOUNTER → 2022-04-09 | Outpatient (CLI) | payer MEDICARE | LOC: M WUC 13:49 | PROVIDERS: ATTEND Thoracic Surgery (Cardiothoracic Vascular Surgery) | DX: R91.8 Other nonspecific abnormal finding of lung field (principal); K44.9 Diaphragmatic hernia without obstruction or gangrene; I51.7 Cardiomegaly; J91.0 Malignant pleural effusion ==

== ENCOUNTER → 2022-04-13 | Outpatient (CLI) | payer MEDICARE | LOC: M LABSMTC 11:23 | PROVIDERS: ATTEND Anesthesiology | DX: Z11.52 Encounter for screening for COVID-19 (principal); Z20.822 Contact with and (suspected) exposure to COVID-19 ==

== ENCOUNTER → 2022-04-16 | Outpatient (CLI) | payer MEDICARE ==
[~2022-04-16] MED LIST changes: +CALC500C16 PO; +DIALTAB2 PO; +FOLI400T13 PO; +LIDOCAINE 1% MDV 20ML VIAL As Ordered ONE; +MIDAZOLAM INJ 2MG/2ML VIAL (J2250 PER 1MG) As Ordered ONE; +NS 1,000 ML IV SCH; +ceFAZolin 2 GM/D5W 50 ML IV BAG (J0690 PER 500MG) As Ordered ONE; +ceFAZolin SOD 2 GM in IV 1 EA IV ONE; +diphenhydrAMINE 50MG/ML VIAL (J1200) As Ordered ONE; +fentaNYL 100 MCG/2 ML INJECTION As Ordered ONE
[2022-04-16 15:00] VITALS: BP 112/80
== END ==
LOC: M IRPRO 10:29
PROVIDERS: ATTEND Internal Medicine Medical Oncology
DX: C34.90 Malignant neoplasm of unspecified part of unspecified bronchus or lung (principal)
CPT/HCPCS: 36561; 99152; 99153; C1769; C1788; C1894; J0690; J1200; J1642; J1644; J2250; J3010

== ENCOUNTER → 2022-05-01 | Outpatient (CLI) | payer MEDICARE ==
[~2022-05-01] MED LIST changes: -LIDOCAINE 1% MDV 20ML VIAL As Ordered ONE; -MIDAZOLAM INJ 2MG/2ML VIAL (J2250 PER 1MG) As Ordered ONE; +MULTIVITAMIN PO; -NS 1,000 ML IV SCH; +XANA0.25 PO; +[UNRECOGNIZED DRUG - OTHER] PO; -ceFAZolin 2 GM/D5W 50 ML IV BAG (J0690 PER 500MG) As Ordered ONE; -ceFAZolin SOD 2 GM in IV 1 EA IV ONE; -diphenhydrAMINE 50MG/ML VIAL (J1200) As Ordered ONE; -fentaNYL 100 MCG/2 ML INJECTION As Ordered ONE
== END ==
LOC: M WUC 08:23
PROVIDERS: ATTEND Thoracic Surgery (Cardiothoracic Vascular Surgery)
DX: C34.2 Malignant neoplasm of middle lobe, bronchus or lung (principal); J91.0 Malignant pleural effusion; Z97.8 Presence of other specified devices; I51.7 Cardiomegaly; K44.9 Diaphragmatic hernia without obstruction or gangrene

== ENCOUNTER → 2022-05-06 | Outpatient (POV) | payer MEDICARE ==
[~2022-05-06] VITALS: Ht 154.9 cm; Wt 72.7 kg
[2022-05-06 10:15] VITALS: BP 159/76
== END ==
LOC: M IRPOV 10:02
PROVIDERS: ATTEND Radiology Diagnostic Radiology
DX: Z45.2 Encounter for adjustment and management of vascular access device (principal)

== ENCOUNTER → 2022-05-23 | Outpatient (CLI) | payer MEDICARE ==
[~2022-05-23] MED LIST changes: +PRESCAP PO; +PROHANCE 279.3MG/ML 15ML VIAL As Ordered ONE
== END ==
LOC: M RAD 12:39
PROVIDERS: ATTEND Nurse Practitioner
DX: C34.90 Malignant neoplasm of unspecified part of unspecified bronchus or lung (principal)
CPT/HCPCS: 70553; A9576

== ENCOUNTER → 2022-05-26 | Outpatient (CLI) | payer MEDICARE ==
[~2022-05-26] MED LIST changes: -PROHANCE 279.3MG/ML 15ML VIAL As Ordered ONE
== END ==
LOC: M LABSMTC 11:13
PROVIDERS: ATTEND Anesthesiology
DX: Z11.52 Encounter for screening for COVID-19 (principal)

== ENCOUNTER 2022-05-28 12:07 | Day surgery (SDC) | payer MEDICARE ==
[~2022-05-28] VITALS: Ht 157.5 cm; Wt 72.8 kg
[~2022-05-28 12:07] MED LIST changes: -PRESCAP PO
[2022-05-28] MEDS ORDERED: PRESCAP PO (12:44)
[2022-05-28] MEDS ORDERED: ceFAZolin SOD 2 GM in IV 1 EA IV ONE (12:45)
[2022-05-28] MEDS ORDERED: MUPIROCIN 2% OINT 22 GM TUBE TOP ONE (12:45)
[2022-05-28] MEDS: NS 1,000 ML IV SCH ×2 (13:05→13:14)
[2022-05-28] MEDS ORDERED: BUPIVACAINE LIPOSOME/PF 1.3% 20ML VIAL (13.3MG/ML)(EXPAREL) As Ordered ONE (13:19)
[2022-05-28 14:25] VITALS: BP 139/66
== END 2022-05-28 14:33 | disposition home or self-care (01) ==
LOC: M SDC 12:07
PROVIDERS: ATTEND Thoracic Surgery (Cardiothoracic Vascular Surgery)
DX: Z46.82 Encounter for fitting and adjustment of non-vascular catheter (principal); C34.2 Malignant neoplasm of middle lobe, bronchus or lung; J91.0 Malignant pleural effusion; F41.9 Anxiety disorder, unspecified; Z87.891 Personal history of nicotine dependence; Z79.899 Other long term (current) drug therapy; Z88.8 Allergy status to other drugs, medicaments and biological substances; I10 Essential (primary) hypertension

== ENCOUNTER → 2022-06-06 | Outpatient (CLI) | payer MEDICARE ==
[~2022-06-06] MED LIST changes: +GASTROGRAFIN SOLUTION 30ML (Q9963) As Ordered ONE; +ISOVUE-370 76% 100ML VIAL As Ordered ONE; +PRESCAP PO
== END ==
LOC: M RAD 13:49
PROVIDERS: ATTEND Internal Medicine Medical Oncology
DX: C34.90 Malignant neoplasm of unspecified part of unspecified bronchus or lung (principal); C22.1 Intrahepatic bile duct carcinoma; R91.8 Other nonspecific abnormal finding of lung field; K44.9 Diaphragmatic hernia without obstruction or gangrene; J98.11 Atelectasis; I70.0 Atherosclerosis of aorta
CPT/HCPCS: 71260; 74177; Q9963; Q9967

== ENCOUNTER → 2022-09-02 | Outpatient (CLI) | payer MEDICARE ==
[~2022-09-02] MED LIST changes: +E-Z-GAS II EFFERVESCENT PACKET (SODIUM BICARB./CITRIC ACID/SIMETHICONE) As Ordered ONE; +E-Z-HD 98% w/w 340GM SUSP BTL As Ordered ONE; +E-Z-PAQUE 96% w/w SUSP 176GM BTL As Ordered ONE; -GASTROGRAFIN SOLUTION 30ML (Q9963) As Ordered ONE; -HYZA50TA2 PO; -ISOVUE-370 76% 100ML VIAL As Ordered ONE; +LOSA-532 PO; +MAGICMW SSP; +OMEP-173
== END ==
LOC: M RAD 08:40
PROVIDERS: ATTEND Otolaryngology
DX: K44.9 Diaphragmatic hernia without obstruction or gangrene (principal); R13.10 Dysphagia, unspecified; K21.9 Gastro-esophageal reflux disease without esophagitis

== ENCOUNTER → 2022-09-08 | Outpatient (CLI) | payer MEDICARE ==
[~2022-09-08] MED LIST changes: -E-Z-GAS II EFFERVESCENT PACKET (SODIUM BICARB./CITRIC ACID/SIMETHICONE) As Ordered ONE; -E-Z-HD 98% w/w 340GM SUSP BTL As Ordered ONE; -E-Z-PAQUE 96% w/w SUSP 176GM BTL As Ordered ONE; +GASTROGRAFIN SOLUTION 30ML As Ordered ONE; +ISOVUE-370 76% 100ML VIAL As Ordered ONE
== END ==
LOC: M RAD 11:19
PROVIDERS: ATTEND Internal Medicine Medical Oncology
DX: C34.2 Malignant neoplasm of middle lobe, bronchus or lung (principal)
CPT/HCPCS: 71260; 74177; Q9963; Q9967

== ENCOUNTER → 2022-10-29 | Outpatient (CLI) | payer MEDICARE ==
[~2022-10-29] MED LIST changes: -GASTROGRAFIN SOLUTION 30ML As Ordered ONE; -ISOVUE-370 76% 100ML VIAL As Ordered ONE
== END ==
LOC: M LABSMTC 10:38
PROVIDERS: ATTEND Anesthesiology
DX: Z01.812 Encounter for preprocedural laboratory examination (principal); Z20.822 Contact with and (suspected) exposure to COVID-19

== ENCOUNTER 2022-11-03 12:31 | Day surgery (SDC) | payer MEDICARE ==
[~2022-11-03] VITALS: Ht 154.9 cm; Wt 72.1 kg
[~2022-11-03 12:31] MED LIST changes: +NS 1,000 ML IV ONE
[2022-11-03 14:20] VITALS: BP 132/68
== END 2022-11-03 14:59 | disposition home or self-care (01) ==
LOC: M OPP 12:31
PROVIDERS: ATTEND Internal Medicine Gastroenterology
DX: C15.5 Malignant neoplasm of lower third of esophagus (principal); K29.70 Gastritis, unspecified, without bleeding; K44.9 Diaphragmatic hernia without obstruction or gangrene; K22.10 Ulcer of esophagus without bleeding; Z79.52 Long term (current) use of systemic steroids; Z79.811 Long term (current) use of aromatase inhibitors; Z79.899 Other long term (current) drug therapy; Z88.4 Allergy status to anesthetic agent; Z88.8 Allergy status to other drugs, medicaments and biological substances; C34.00 Malignant neoplasm of unspecified main bronchus; Z92.21 Personal history of antineoplastic chemotherapy; Z87.891 Personal history of nicotine dependence

== ENCOUNTER → 2022-12-26 | Outpatient (CLI) | payer MEDICARE ==
[~2022-12-26] MED LIST changes: +ATIV1TAB7 PO; +FAMO20TA PO; +GASTROGRAFIN SOLUTION 30ML As Ordered ONE; +ISOVUE-370 76% 100ML VIAL As Ordered ONE; +K-TA1TAB PO; -NS 1,000 ML IV ONE; +PRED20TA PO
== END ==
LOC: M RAD 14:57
PROVIDERS: ATTEND Internal Medicine Medical Oncology
DX: C34.90 Malignant neoplasm of unspecified part of unspecified bronchus or lung (principal)
CPT/HCPCS: 71260; 74160; Q9963; Q9967

== ENCOUNTER → 2023-01-02 | Outpatient (CLI) | payer MEDICARE ==
[~2023-01-02] MED LIST changes: -GASTROGRAFIN SOLUTION 30ML As Ordered ONE; -ISOVUE-370 76% 100ML VIAL As Ordered ONE
== END ==
LOC: M PLARAD 12:22
PROVIDERS: ATTEND Internal Medicine Medical Oncology
DX: C34.90 Malignant neoplasm of unspecified part of unspecified bronchus or lung (principal); R41.0 Disorientation, unspecified

== ENCOUNTER → 2023-01-19 | Outpatient (CLI) | payer MEDICARE ==
[~2023-01-19] MED LIST changes: +ECOT81TA5 PO
== END ==
LOC: M WHC 10:38
PROVIDERS: ATTEND Internal Medicine
DX: Z12.31 Encounter for screening mammogram for malignant neoplasm of breast (principal)

== ENCOUNTER → 2023-01-26 | Outpatient (CLI) | payer MEDICARE ==
[~2023-01-26] MED LIST changes: +FOLI0.4T5 PO; +KEYT1INJ IV
== END ==
LOC: M PLARAD 10:03
PROVIDERS: ATTEND Internal Medicine Medical Oncology
DX: C34.2 Malignant neoplasm of middle lobe, bronchus or lung (principal); C34.11 Malignant neoplasm of upper lobe, right bronchus or lung; J91.0 Malignant pleural effusion
CPT/HCPCS: 78815; A9552

== ENCOUNTER 2023-02-24 09:40 | Day surgery (SDC) | payer MEDICARE ==
[~2023-02-24] VITALS: Ht 154.9 cm; Wt 77.3 kg
[~2023-02-24 09:40] MED LIST changes: +CEFUROXIME 1MG/0.1ML INTRACAMERAL INJ As Ordered ONE; +CYCLOPENTOLATE 1% OPHTH SOLN 2ML BTL OS SCH; -KEYT1INJ IV; +LIDOCAINE 1% SDV 5ML VIAL As Ordered ONE; +OFLOXACIN 0.3 % (OCUFLOX) OPTH SOL 5ML OS SCH; +PHENYLEPHRINE 2.5% OPHTH SOL 2ML OS SCH; +PROPARACAINE 0.5% OPHTH SOL 15ML OS ONE; +TROPICAMIDE 1% OPHTH SOLN 15ML OS SCH
[2023-02-24] MEDS ORDERED: KEYT1INJ IV (10:52)
[2023-02-24] MEDS ORDERED: MIDAZOLAM INJ 2MG/2ML VIAL As Ordered ONE (12:05)
[2023-02-24] MEDS ORDERED: fentaNYL 100 MCG/2 ML INJECTION As Ordered ONE (12:05)
[2023-02-24 12:23] VITALS: BP 145/81
== END 2023-02-24 12:54 | disposition home or self-care (01) ==
LOC: M SDC 09:40
PROVIDERS: ATTEND Ophthalmology
DX: H25.12 Age-related nuclear cataract, left eye (principal); I10 Essential (primary) hypertension; E78.5 Hyperlipidemia, unspecified; Z88.8 Allergy status to other drugs, medicaments and biological substances; Z79.899 Other long term (current) drug therapy
CPT/HCPCS: 66984; J0697; J2250; J3010; V2632

== ENCOUNTER 2023-04-07 10:29 | Day surgery (SDC) | payer MEDICARE ==
[~2023-04-07] VITALS: Ht 157.5 cm; Wt 76.2 kg
[~2023-04-07 10:29] MED LIST changes: +ACETYLCHOLINE OPHTH SOLN 1% 2ML (MIOCHOL-E) As Ordered ONE; -CYCLOPENTOLATE 1% OPHTH SOLN 2ML BTL OS SCH; +KETO0.5S4; +KEYT1INJ IV; +MIDAZOLAM INJ 2MG/2ML VIAL As Ordered ONE; +OFLOSO; -OFLOXACIN 0.3 % (OCUFLOX) OPTH SOL 5ML OS SCH; -PHENYLEPHRINE 2.5% OPHTH SOL 2ML OS SCH; +PREDOPD; +PROPARACAINE 0.5% OPHTH SOL 15ML OD ONE; -PROPARACAINE 0.5% OPHTH SOL 15ML OS ONE; -TROPICAMIDE 1% OPHTH SOLN 15ML OS SCH; +VENL150T24 PO; +fentaNYL 100 MCG/2 ML INJECTION As Ordered ONE
[2023-04-07] MEDS: CYCLOPENTOLATE 1% OPHTH SOLN 2ML BTL OD SCH ×2 (11:33→11:38)
[2023-04-07] MEDS: PHENYLEPHRINE 2.5% OPHTH SOL 2ML OD SCH ×2 (11:33→11:38)
[2023-04-07] MEDS: TROPICAMIDE 1% OPHTH SOLN 15ML OD SCH ×2 (11:33→11:38)
[2023-04-07] MEDS: OFLOXACIN 0.3 % (OCUFLOX) OPTH SOL 5ML OD SCH ×2 (11:33→11:38)
[2023-04-07 13:41] VITALS: BP 116/56; TEMP 99.4; O2SAT 94
[2023-04-21] MEDS ORDERED: POTA-151 PO (13:06)
[2023-04-22] MEDS ORDERED: ONDA8TAB8 PO (11:03)
== END 2023-04-07 14:02 | disposition home or self-care (01) ==
LOC: M SDC 10:29
PROVIDERS: ATTEND Ophthalmology
DX: H25.11 Age-related nuclear cataract, right eye (principal); I10 Essential (primary) hypertension; E78.5 Hyperlipidemia, unspecified; Z87.891 Personal history of nicotine dependence; Z88.8 Allergy status to other drugs, medicaments and biological substances; Z79.899 Other long term (current) drug therapy
CPT/HCPCS: 66984; J0697; J2250; J3010; V2632

== ENCOUNTER → 2023-04-23 | Outpatient (CLI) | payer MEDICARE ==
[~2023-04-23] MED LIST changes: -ACETYLCHOLINE OPHTH SOLN 1% 2ML (MIOCHOL-E) As Ordered ONE; -CEFUROXIME 1MG/0.1ML INTRACAMERAL INJ As Ordered ONE; +GASTROGRAFIN SOLUTION 30ML As Ordered ONE; +ISOVUE-370 76% 100ML VIAL As Ordered ONE; -LIDOCAINE 1% SDV 5ML VIAL As Ordered ONE; -MIDAZOLAM INJ 2MG/2ML VIAL As Ordered ONE; +ONDA8TAB8 PO; +POTA-151 PO; -PROPARACAINE 0.5% OPHTH SOL 15ML OD ONE; -fentaNYL 100 MCG/2 ML INJECTION As Ordered ONE
== END ==
LOC: M RAD 10:58
PROVIDERS: ATTEND Internal Medicine Medical Oncology
DX: C34.90 Malignant neoplasm of unspecified part of unspecified bronchus or lung (principal)
CPT/HCPCS: 71260; 74177; Q9963; Q9967

== ENCOUNTER 2023-05-15 13:22 | Observation (INO) | payer MEDICARE ==
[~2023-05-15] VITALS: Ht 157.5 cm; Wt 78.9 kg
[~2023-05-15 13:22] MED LIST changes: -GASTROGRAFIN SOLUTION 30ML As Ordered ONE; -ISOVUE-370 76% 100ML VIAL As Ordered ONE; -OFLOSO; +OFLOSO OS
[2023-05-15 15:15] LABS: BASO % 0.4 % (0.0-1.0); EOS % 0.1 % (0.0-3.0); HEMATOCRIT 41.3 % (36.0-47.0); HEMOGLOBIN 13.8 g/dl (12.0-15.5); LYMPH # 1.1 10^3/uL (1.5-5.0); LYMPH % 14.1 % (24.0-44.0); MEAN CORPUSCULAR HEMOGLOBIN 35.9 pg (27.0-33.0); MEAN CORPUSCULAR HGB CONC 33.4 g/dl (32.0-36.5); MEAN CORPUSCULAR VOLUME 107.6 fl (80.0-96.0); MONO # 1.2 10^3/uL (0.0-0.8); NEUTROPHILS # 5.2 10^3/uL (1.5-8.5); NEUTROPHILS % 69.1 % (36.0-66.0); PLATELET COUNT, AUTOMATED 274 10^3/uL (150-450); RED BLOOD COUNT 3.84 10^6/uL (4.00-5.40); WHITE BLOOD COUNT 7.6 10^3/uL (4.0-10.0)
[2023-05-15 15:44] LABS: LIPASE 31 U/L (12-53)
[2023-05-15 15:45] LABS: CK-MB VALUE MASS 1.9 NG/ML (<3.6)
[2023-05-15 15:47] LABS: ALBUMIN 3.4 G/DL (3.2-5.2); ALKALINE PHOSPHATASE 88 U/L (46-116); ALT/SGPT 42 U/L (7.0-40); AST/SGOT 61 U/L (<34); BILIRUBIN,DIRECT 0.2 MG/DL (<0.4); BILIRUBIN,TOTAL 0.6 MG/DL (0.3-1.2); BLOOD UREA NITROGEN 9 MG/DL (9-23); CALCIUM LEVEL 8.9 MG/DL (8.3-10.6); CARBON DIOXIDE LEVEL 23 MMOL/L (20-31); CHLORIDE LEVEL 98 MMOL/L (98-107); CREATININE FOR GFR 0.68 MG/DL (0.55-1.30); GLOMERULAR FILTRATION RATE > 60.0 (>39); GLUCOSE, FASTING 121 MG/DL (74-106); POTASSIUM SERUM 4.4 MMOL/L (3.5-5.1); SODIUM LEVEL 136 MMOL/L (136-145); TOTAL PROTEIN 6.7 G/DL (5.7-8.2)
[2023-05-15 15:48] LABS: CPK CREATINE PHOSPHOKINASE 88 U/L (34-145); MB/CK RELATIVE INDEX 2.15 (< OR =4)
[2023-05-15] MEDS ORDERED: PROMETHAZINE 25MG/ML 1ML VIAL IV ONE (16:30)
[2023-05-15] MEDS ORDERED: NS 500 ML IV ONE (16:30)
[2023-05-15 16:50] LABS: CK-MB VALUE MASS 1.9 NG/ML (<3.6)
[2023-05-15 16:55] LABS: MB/CK RELATIVE INDEX 2.31 (< OR =4)
[2023-05-15] MEDS: NS 1,000 ML IV SCH (17:36)
[2023-05-15] MEDS: METOPROLOL 5 MG/5 ML VIAL IV SCH ×2 (17:36→17:37)
[2023-05-15] MEDS ORDERED: METOPROLOL TART 25 MG TABLET PO ONE (18:00)
[2023-05-15] MEDS ORDERED: MED REC IN PROGRESS XX SCH (18:25)
[2023-05-15] MEDS ORDERED: ACETAMINOPHEN TAB 650MG DOSE (2X325MG) PO PRN (18:35)
[2023-05-15 19:39] LABS: INR 1.09; PROTHROMBIN TIME 14.3 SECONDS (12.5-14.5)
[2023-05-15 19:40] LABS: PARTIAL THROMBOPLASTIN TIME 31.1 SECONDS (24.8-34.2)
[2023-05-15] MEDS ORDERED: ENOXAPARIN 80MG/0.8ML SYRINGE (J1650 PER 10MG) SC ONE (20:00)
[2023-05-15] MEDS ORDERED: HOME MED LIST COMPLETE! XX SCH (20:30)
[2023-05-15 20:34] VITALS: BP 132/70; TEMP 97.6; O2SAT 96
[2023-05-15] MEDS ORDERED: PROCHLORPERAZINE 5MG TAB PO PRN (20:35)
[2023-05-15] MEDS ORDERED: ONDANSETRON 4MG ORAL DISINTEGRATING TAB PO PRN (20:35)
[2023-05-15 20:40] LABS: THYROXINE (T4) 9.2 UG/DL (4.5-10.9); VITAMIN B12 LEVEL 761 PG/ML (211-911)
[2023-05-15 20:41] LABS: FREE THYROXINE INDEX 3.5 % (1.3-4.8); T UPTAKE 38.5 % (22.5-37.0)
[2023-05-15 20:44] LABS: FOLATE 23.9 NG/ML (>5.4)
[2023-05-15] MEDS: PRAVASTATIN 20 MG TAB PO SCH (21:02)
[2023-05-16] VITALS (7 sets, daily range): BP systolic 123–147; BP diastolic 59–77; TEMP 97.3–98.6; O2SAT 96–99
[2023-05-16] MEDS ORDERED: METOPROLOL TART 25 MG TABLET PO SCH
[2023-05-16] MEDS ORDERED: NS 500 ML IV ONE (01:05)
[2023-05-16] MEDS ORDERED: METOPROLOL 5 MG/5 ML VIAL As Ordered ONE (01:08)
[2023-05-16] MEDS: METOPROLOL 5 MG/5 ML VIAL IV SCH ×6 (01:18→23:32)
[2023-05-16] MEDS ORDERED: METOPROLOL TART 25 MG TABLET PO ONE (02:40)
[2023-05-16] MEDS ORDERED: DIGOXIN INJ 0.5 MG/2 ML AMP IV ONE (03:40)
[2023-05-16 05:17] LABS: HEMATOCRIT 37.1 % (36.0-47.0); HEMOGLOBIN 12.5 g/dl (12.0-15.5); MEAN CORPUSCULAR HEMOGLOBIN 36.9 pg (27.0-33.0); MEAN CORPUSCULAR HGB CONC 33.7 g/dl (32.0-36.5); MEAN CORPUSCULAR VOLUME 109.4 fl (80.0-96.0); PLATELET COUNT, AUTOMATED 229 10^3/uL (150-450); RED BLOOD COUNT 3.39 10^6/uL (4.00-5.40); WHITE BLOOD COUNT 5.6 10^3/uL (4.0-10.0)
[2023-05-16 05:48] LABS: BLOOD UREA NITROGEN 9 MG/DL (9-23); CALCIUM LEVEL 8.4 MG/DL (8.3-10.6); CARBON DIOXIDE LEVEL 26 MMOL/L (20-31); CHLORIDE LEVEL 101 MMOL/L (98-107); CREATININE FOR GFR 0.75 MG/DL (0.55-1.30); GLOMERULAR FILTRATION RATE > 60.0 (>39); GLUCOSE, FASTING 102 MG/DL (74-106); MAGNESIUM LEVEL 1.5 MG/DL (1.8-2.4); POTASSIUM SERUM 4.1 MMOL/L (3.5-5.1); SODIUM LEVEL 138 MMOL/L (136-145)
[2023-05-16] MEDS ORDERED: MAG SULF 1GM/100ML (MAG RUN) 1 GM in IV 1 EA IV ONE ×2 (05:55→08:00)
[2023-05-16] MEDS: NS 1,000 ML IV SCH (05:58)
[2023-05-16] MEDS: METOPROLOL TART 50 MG TAB PO SCH ×3 (05:58→17:29)
[2023-05-16] MEDS ORDERED: ONDANSETRON 4MG 2ML VIAL IV PRN (07:40)
[2023-05-16] MEDS ORDERED: PROMETHAZINE 25MG/ML 1ML VIAL IV PRN (07:40)
[2023-05-16] MEDS: ASPIRIN 81MG ENTERIC TABLET PO SCH (08:00)
[2023-05-16] MEDS: MAGNESIUM OXIDE 400MG TAB (MAG-OX) PO SCH ×3 (08:00→20:06)
[2023-05-16] MEDS: PANTOPRAZOLE 40MG TAB (PROTONIX) PO SCH (08:00)
[2023-05-16] MEDS: CALCIUM CARBONATE 500 MG CHEW U/D PO SCH (08:00)
[2023-05-16] MEDS: VENLAFAXINE **XR** 75MG CAPSULE PO SCH (08:00)
[2023-05-16] MEDS ORDERED: LOSARTAN 50MG TABLET PO SCH (09:00)
[2023-05-16] MEDS: PRAVASTATIN 20 MG TAB PO SCH (20:07)
[2023-05-16] MEDS ORDERED: RAMELTEON 8 MG TAB (ROZEREM) PO PRN (22:05)
[2023-05-17] VITALS (7 sets, daily range): BP systolic 104–146; BP diastolic 59–82; TEMP 97.2–98.5; O2SAT 93–97
[2023-05-17] MEDS: METOPROLOL TART 50 MG TAB PO SCH ×5 (00:20→23:33)
[2023-05-17] MEDS ORDERED: METOPROLOL TART 25 MG TABLET PO ONE (02:30)
[2023-05-17 07:56] LABS: BASO % 0.4 % (0.0-1.0); EOS # 0.3 10^3/uL (0.0-0.5); EOS % 5.6 % (0.0-3.0); HEMATOCRIT 36.8 % (36.0-47.0); HEMOGLOBIN 12.4 g/dl (12.0-15.5); LYMPH # 0.9 10^3/uL (1.5-5.0); LYMPH % 16.3 % (24.0-44.0); MEAN CORPUSCULAR HEMOGLOBIN 36.4 pg (27.0-33.0); MEAN CORPUSCULAR HGB CONC 33.7 g/dl (32.0-36.5); MEAN CORPUSCULAR VOLUME 107.9 fl (80.0-96.0); MONO # 0.9 10^3/uL (0.0-0.8); MONO % 16.7 % (2.0-8.0); NEUTROPHILS # 3.2 10^3/uL (1.5-8.5); NEUTROPHILS % 60.6 % (36.0-66.0); PLATELET COUNT, AUTOMATED 211 10^3/uL (150-450); RED BLOOD COUNT 3.41 10^6/uL (4.00-5.40); WHITE BLOOD COUNT 5.3 10^3/uL (4.0-10.0)
[2023-05-17 08:15] LABS: BLOOD UREA NITROGEN 10 MG/DL (9-23); CALCIUM LEVEL 8.4 MG/DL (8.3-10.6); CARBON DIOXIDE LEVEL 26 MMOL/L (20-31); CHLORIDE LEVEL 101 MMOL/L (98-107); CREATININE FOR GFR 0.71 MG/DL (0.55-1.30); GLOMERULAR FILTRATION RATE > 60.0 (>39); GLUCOSE, FASTING 100 MG/DL (74-106); MAGNESIUM LEVEL 1.9 MG/DL (1.8-2.4); POTASSIUM SERUM 4.1 MMOL/L (3.5-5.1); SODIUM LEVEL 135 MMOL/L (136-145)
[2023-05-17] MEDS: CALCIUM CARBONATE 500 MG CHEW U/D PO SCH (08:33)
[2023-05-17] MEDS: ASPIRIN 81MG ENTERIC TABLET PO SCH (08:33)
[2023-05-17] MEDS: MAGNESIUM OXIDE 400MG TAB (MAG-OX) PO SCH ×3 (08:33→21:22)
[2023-05-17] MEDS: APIXABAN 5 MG TAB (ELIQUIS) PO SCH ×2 (08:33→21:22)
[2023-05-17] MEDS: PANTOPRAZOLE 40MG TAB (PROTONIX) PO SCH (08:33)
[2023-05-17] MEDS: VENLAFAXINE **XR** 75MG CAPSULE PO SCH (08:33)
[2023-05-17] MEDS ORDERED: SODIUM CHLORIDE 0.9% INJ 10 ML SYR IV SCH (09:00)
[2023-05-17] MEDS ORDERED: traZODone 25MG PER 1/2 TABLET PO SCH (20:00)
[2023-05-17] MEDS: PRAVASTATIN 20 MG TAB PO SCH (21:21)
[2023-05-17] MEDS ORDERED: SODIUM CHLORIDE 0.9% INJ 10 ML SYR IV PRN (23:45)
[2023-05-18 04:00] VITALS: BP 128/68; TEMP 98.4; O2SAT 91
[2023-05-18 05:17] LABS: BASO % 0.2 % (0.0-1.0); EOS # 0.3 10^3/uL (0.0-0.5); EOS % 5.8 % (0.0-3.0); HEMOGLOBIN 11.5 g/dl (12.0-15.5); LYMPH # 0.8 10^3/uL (1.5-5.0); LYMPH % 15.8 % (24.0-44.0); MEAN CORPUSCULAR HEMOGLOBIN 36.3 pg (27.0-33.0); MEAN CORPUSCULAR HGB CONC 33.8 g/dl (32.0-36.5); MEAN CORPUSCULAR VOLUME 107.3 fl (80.0-96.0); MONO % 21.6 % (2.0-8.0); NEUTROPHILS # 2.7 10^3/uL (1.5-8.5); PLATELET COUNT, AUTOMATED 182 10^3/uL (150-450); RED BLOOD COUNT 3.17 10^6/uL (4.00-5.40); WHITE BLOOD COUNT 4.8 10^3/uL (4.0-10.0)
[2023-05-18 05:32] LABS: BLOOD UREA NITROGEN 10 MG/DL (9-23); CALCIUM LEVEL 8.3 MG/DL (8.3-10.6); CARBON DIOXIDE LEVEL 27 MMOL/L (20-31); CHLORIDE LEVEL 102 MMOL/L (98-107); CREATININE FOR GFR 0.65 MG/DL (0.55-1.30); GLOMERULAR FILTRATION RATE > 60.0 (>39); GLUCOSE, FASTING 89 MG/DL (74-106); POTASSIUM SERUM 3.7 MMOL/L (3.5-5.1); SODIUM LEVEL 136 MMOL/L (136-145)
[2023-05-18 05:39] VITALS: BP 146/65
[2023-05-18 05:45] VITALS: BP 146/65
[2023-05-18] MEDS: METOPROLOL TART 50 MG TAB PO SCH (05:45)
[2023-05-18 08:00] VITALS: BP 127/69; TEMP 98.3; O2SAT 95
[2023-05-18] MEDS ORDERED: SODIUM CHLORIDE 0.9% INJ 10 ML SYR IV SCH (09:00)
[2023-05-18] MEDS: CALCIUM CARBONATE 500 MG CHEW U/D PO SCH (09:00)
[2023-05-18] MEDS ORDERED: HYDR12CA PO (09:22)
[2023-05-18] MEDS ORDERED: METO100T5 PO (09:22)
[2023-05-18] MEDS ORDERED: ELIQ5TAB PO (09:22)
[2023-05-18] MEDS ORDERED: FUROSEMIDE 40MG/4ML VIAL IV ONE (09:25)
[2023-05-18] MEDS: PANTOPRAZOLE 40MG TAB (PROTONIX) PO SCH (10:16)
[2023-05-18] MEDS: MAGNESIUM OXIDE 400MG TAB (MAG-OX) PO SCH (10:16)
[2023-05-18] MEDS: VENLAFAXINE **XR** 75MG CAPSULE PO SCH (10:17)
[2023-05-18] MEDS: APIXABAN 5 MG TAB (ELIQUIS) PO SCH (10:17)
[2023-05-18] MEDS: ASPIRIN 81MG ENTERIC TABLET PO SCH (10:17)
[2023-05-18] MEDS ORDERED: MAGN400T2 PO (10:51)
[2023-05-20] MEDS ORDERED: OMEP-173 (13:30)
== END 2023-05-18 11:29 | disposition home or self-care (01) ==
LOC: M ED 13:22 → M ED INP 18:47 → M PCU 20:20
PROVIDERS: ADMIT Internal Medicine; ATTEND Internal Medicine
DX: I48.0 Paroxysmal atrial fibrillation (principal); E83.42 Hypomagnesemia; R53.82 Chronic fatigue, unspecified; R53.81 Other malaise; R11.0 Nausea; C34.91 Malignant neoplasm of unspecified part of right bronchus or lung; I10 Essential (primary) hypertension; E78.5 Hyperlipidemia, unspecified; F41.9 Anxiety disorder, unspecified; Z86.73 Personal history of transient ischemic attack (TIA), and cerebral infarction without residual deficits; Z88.8 Allergy status to other drugs, medicaments and biological substances; Z79.899 Other long term (current) drug therapy; Z79.01 Long term (current) use of anticoagulants; Z79.82 Long term (current) use of aspirin; Z87.891 Personal history of nicotine dependence
CPT/HCPCS: 36415; 80048; 83735; 85025; 85027; 93005; 96361; 96365; 96372; 96375; 96376; G0378; J1160; J1940; J3475

== ENCOUNTER 2023-05-28 21:58 | Emergency (ER) | payer MEDICARE ==
[~2023-05-28] VITALS: Ht 154.9 cm; Wt 80.7 kg
[~2023-05-28 21:58] MED LIST changes: +ELIQ5TAB PO; +HYDR12CA PO; +MAGN400T2 PO; +METO100T5 PO
[2023-05-28] MEDS ORDERED: SODIUM CHLORIDE 0.9% INJ 10 ML SYR IV PRN (22:25)
[2023-05-28 23:03] LABS: BASO % 0.6 % (0.0-1.0); EOS # 0.2 10^3/uL (0.0-0.5); EOS % 2.7 % (0.0-3.0); HEMATOCRIT 37.3 % (36.0-47.0); HEMOGLOBIN 12.7 g/dl (12.0-15.5); LYMPH # 1.3 10^3/uL (1.5-5.0); LYMPH % 20.5 % (24.0-44.0); MEAN CORPUSCULAR HEMOGLOBIN 35.9 pg (27.0-33.0); MEAN CORPUSCULAR VOLUME 105.4 fl (80.0-96.0); MONO % 15.8 % (2.0-8.0); NEUTROPHILS # 3.7 10^3/uL (1.5-8.5); NEUTROPHILS % 60.1 % (36.0-66.0); PLATELET COUNT, AUTOMATED 276 10^3/uL (150-450); RED BLOOD COUNT 3.54 10^6/uL (4.00-5.40); WHITE BLOOD COUNT 6.2 10^3/uL (4.0-10.0)
[2023-05-28 23:38] LABS: ALBUMIN 2.6 G/DL (3.2-5.2); ALKALINE PHOSPHATASE 101 U/L (46-116); ALT/SGPT 28 U/L (7.0-40); AST/SGOT 49 U/L (<34); BILIRUBIN,DIRECT 0.1 MG/DL (<0.4); BILIRUBIN,TOTAL 0.3 MG/DL (0.3-1.2); BLOOD UREA NITROGEN 9 MG/DL (9-23); CALCIUM LEVEL 8.4 MG/DL (8.3-10.6); CARBON DIOXIDE LEVEL 25 MMOL/L (20-31); CHLORIDE LEVEL 98 MMOL/L (98-107); CREATININE FOR GFR 0.75 MG/DL (0.55-1.30); GLOMERULAR FILTRATION RATE > 60.0 (>39); GLUCOSE, FASTING 95 MG/DL (74-106); MAGNESIUM LEVEL 1.7 MG/DL (1.8-2.4); SODIUM LEVEL 137 MMOL/L (136-145); TOTAL PROTEIN 5.8 G/DL (5.7-8.2)
[2023-05-28] MEDS ORDERED: KCL 20MEQ IN 100ML SWI (KRUN) 20 MEQ in IV 1 EA IV ONE ×2 (23:50)
[2023-05-28] MEDS ORDERED: MAG SULF 1GM/100ML (MAG RUN) 1 GM in IV 1 EA IV ONE (23:55)
[2023-05-29 01:57] VITALS: BP 108/63; TEMP 98.4; O2SAT 94
== END 2023-05-29 02:07 | disposition home or self-care (01) ==
LOC: M ED 21:58
DX: E83.42 Hypomagnesemia (principal); T50.2X5A Adverse effect of carbonic-anhydrase inhibitors, benzothiadiazides and other diuretics, initial encounter; I10 Essential (primary) hypertension; I48.91 Unspecified atrial fibrillation; E78.5 Hyperlipidemia, unspecified; F41.9 Anxiety disorder, unspecified; Z86.73 Personal history of transient ischemic attack (TIA), and cerebral infarction without residual deficits; Z85.118 Personal history of other malignant neoplasm of bronchus and lung; Z88.8 Allergy status to other drugs, medicaments and biological substances; Z79.01 Long term (current) use of anticoagulants; Z79.899 Other long term (current) drug therapy
CPT/HCPCS: 80048; 80076; 83735; 85025; 96365; 96366; 96367; 99284; J3475

== ENCOUNTER 2023-06-01 19:37 | Inpatient (IN) | payer MEDICARE ==
[~2023-06-01] VITALS: Ht 154.9 cm; Wt 79.0 kg
[2023-06-01 20:32] LABS: BASO # 0.1 10^3/uL (0.0-0.2); BASO % 0.9 % (0.0-1.0); EOS # 0.1 10^3/uL (0.0-0.5); EOS % 2.6 % (0.0-3.0); HEMATOCRIT 40.8 % (36.0-47.0); HEMOGLOBIN 13.7 g/dl (12.0-15.5); LYMPH # 1.4 10^3/uL (1.5-5.0); MEAN CORPUSCULAR HEMOGLOBIN 35.6 pg (27.0-33.0); MEAN CORPUSCULAR HGB CONC 33.6 g/dl (32.0-36.5); MONO % 18.3 % (2.0-8.0); NEUTROPHILS # 2.8 10^3/uL (1.5-8.5); NEUTROPHILS % 51.8 % (36.0-66.0); PLATELET COUNT, AUTOMATED 229 10^3/uL (150-450); RED BLOOD COUNT 3.85 10^6/uL (4.00-5.40); WHITE BLOOD COUNT 5.4 10^3/uL (4.0-10.0)
[2023-06-01 20:49] LABS: INR 1.33; PROTHROMBIN TIME 16.1 SECONDS (12.5-14.5)
[2023-06-01 20:50] LABS: PARTIAL THROMBOPLASTIN TIME 38.7 SECONDS (24.8-34.2)
[2023-06-01 21:10] LABS: THYROID STIMULATING HORMONE 3.079 uIU/ML (0.55-4.78)
[2023-06-01 21:11] LABS: FREE T4 1.12 NG/DL (0.89-1.76)
[2023-06-01 21:34] LABS: BLOOD UREA NITROGEN 10 MG/DL (9-23); CALCIUM LEVEL 8.2 MG/DL (8.3-10.6); CARBON DIOXIDE LEVEL 30 MMOL/L (20-31); CHLORIDE LEVEL 102 MMOL/L (98-107); CPK CREATINE PHOSPHOKINASE 126 U/L (34-145); CREATININE FOR GFR 0.74 MG/DL (0.55-1.30); GLOMERULAR FILTRATION RATE > 60.0 (>39); GLUCOSE, FASTING 86 MG/DL (74-106); MB/CK RELATIVE INDEX 0.79 (< OR =4); POTASSIUM SERUM 4.5 MMOL/L (3.5-5.1); SODIUM LEVEL 140 MMOL/L (136-145)
[2023-06-01] MEDS ORDERED: NS 500 ML IV ONE ×2 (21:35→23:25)
[2023-06-01] MEDS ORDERED: cefTRIAXone SOD 1 GM in D5W MINI-BAG PLUS 50 ML IV ONE (21:35)
[2023-06-01] MEDS ORDERED: AZITHROMYCIN 250MG TABLET PO ONE (21:35)
[2023-06-01 21:41] LABS: MAGNESIUM LEVEL 1.9 MG/DL (1.8-2.4)
[2023-06-01 21:47] LABS: MB/CK RELATIVE INDEX 1.01 (< OR =4)
[2023-06-01 22:47] LABS: RSV AMPLIFICATION NEGATIVE (NEGATIVE)
[2023-06-02] VITALS (7 sets, daily range): BP systolic 138–178; BP diastolic 69–93; TEMP 96.6–98.2; O2SAT 89–93
[2023-06-02] MEDS ORDERED: VITATAB73 PO (00:33)
[2023-06-02] MEDS ORDERED: MAGN400T2 PO (00:33)
[2023-06-02] MEDS ORDERED: CALC1TAB30 PO (00:33)
[2023-06-02] MEDS ORDERED: ELIQ5TAB PO (00:33)
[2023-06-02] MEDS ORDERED: CARB450I12 IV (00:33)
[2023-06-02] MEDS ORDERED: OMEP1CAP73 PO (00:36)
[2023-06-02] MEDS ORDERED: HOME MED LIST COMPLETE! XX SCH (00:40)
[2023-06-02] MEDS ORDERED: HYDR12.55 PO (00:40)
[2023-06-02 01:08] LABS: PROCALCITONIN 0.38 ng/ml
[2023-06-02] MEDS ORDERED: PROCHLORPERAZINE 5MG TAB PO PRN (01:35)
[2023-06-02] MEDS: VENLAFAXINE **XR** 75MG CAPSULE PO SCH ×2 (01:51→20:15)
[2023-06-02] MEDS: APIXABAN 5 MG TAB (ELIQUIS) PO SCH ×3 (01:51→20:15)
[2023-06-02] MEDS ORDERED: guaiFENesin ER 600 MG TAB PO ONE (04:00)
[2023-06-02 05:10] LABS: HEMATOCRIT 36.8 % (36.0-47.0); HEMOGLOBIN 12.4 g/dl (12.0-15.5); MEAN CORPUSCULAR HEMOGLOBIN 35.2 pg (27.0-33.0); MEAN CORPUSCULAR HGB CONC 33.7 g/dl (32.0-36.5); MEAN CORPUSCULAR VOLUME 104.5 fl (80.0-96.0); PLATELET COUNT, AUTOMATED 187 10^3/uL (150-450); RED BLOOD COUNT 3.52 10^6/uL (4.00-5.40); WHITE BLOOD COUNT 5.3 10^3/uL (4.0-10.0)
[2023-06-02 05:25] LABS: BLOOD UREA NITROGEN 10 MG/DL (9-23); CALCIUM LEVEL 7.8 MG/DL (8.3-10.6); CARBON DIOXIDE LEVEL 25 MMOL/L (20-31); CHLORIDE LEVEL 103 MMOL/L (98-107); CREATININE FOR GFR 0.62 MG/DL (0.55-1.30); GLOMERULAR FILTRATION RATE > 60.0 (>39); GLUCOSE, FASTING 75 MG/DL (74-106); POTASSIUM SERUM 3.9 MMOL/L (3.5-5.1); SODIUM LEVEL 140 MMOL/L (136-145)
[2023-06-02] MEDS: MAGNESIUM OXIDE 400MG TAB (MAG-OX) PO SCH (08:46)
[2023-06-02] MEDS: OMEPRAZOLE 20MG CAP PO SCH (08:46)
[2023-06-02] MEDS: guaiFENesin ER 600 MG TAB PO SCH ×2 (08:46→20:15)
[2023-06-02] MEDS ORDERED: dexAMETHasone 4 MG TAB PO SCH (09:00)
[2023-06-02] MEDS: ONDANSETRON 4MG ORAL DISINTEGRATING TAB PO PRN (11:13)
[2023-06-02] MEDS ORDERED: PRAVASTATIN 20 MG TAB PO SCH (21:00)
[2023-06-02] MEDS ORDERED: AZITHROMYCIN 250MG TABLET PO SCH (21:00)
[2023-06-02] MEDS ORDERED: RAMELTEON 8 MG TAB (ROZEREM) PO ONE (21:00)
[2023-06-02] MEDS ORDERED: DOCUSATE SODIUM 100MG CAPSULE PO SCH (21:00)
[2023-06-02] MEDS ORDERED: cefTRIAXone SOD 1 GM in D5W MINI-BAG PLUS 50 ML IV SCH (22:00)
[2023-06-03 03:57] VITALS: BP 159/79; TEMP 97.8; O2SAT 93
[2023-06-03 06:00] VITALS: TEMP 98.1
[2023-06-03] MEDS: ONDANSETRON 4MG ORAL DISINTEGRATING TAB PO PRN ×2 (06:27→11:25)
[2023-06-03 07:40] VITALS: BP 143/82; TEMP 96.7; O2SAT 96
[2023-06-03] MEDS: APIXABAN 5 MG TAB (ELIQUIS) PO SCH (08:46)
[2023-06-03] MEDS: OMEPRAZOLE 20MG CAP PO SCH (08:46)
[2023-06-03] MEDS: guaiFENesin ER 600 MG TAB PO SCH (08:46)
[2023-06-03] MEDS: MAGNESIUM OXIDE 400MG TAB (MAG-OX) PO SCH (08:46)
[2023-06-03] MEDS ORDERED: ACETAMINOPHEN TAB 650MG DOSE (2X325MG) PO PRN (08:55)
[2023-06-03] MEDS ORDERED: CEFD300CAP PO (11:16)
[2023-06-03] MEDS ORDERED: BACI1CAP PO (11:16)
[2023-06-03] MEDS ORDERED: DOXY-444 PO (11:16)
[2023-06-03 11:41] LABS: BASO % 0.3 % (0.0-1.0); EOS # 0.1 10^3/uL (0.0-0.5); EOS % 1.1 % (0.0-3.0); HEMOGLOBIN 13.1 g/dl (12.0-15.5); LYMPH # 0.9 10^3/uL (1.5-5.0); LYMPH % 14.3 % (24.0-44.0); MEAN CORPUSCULAR HEMOGLOBIN 35.3 pg (27.0-33.0); MEAN CORPUSCULAR HGB CONC 33.6 g/dl (32.0-36.5); MEAN CORPUSCULAR VOLUME 105.1 fl (80.0-96.0); MONO % 16.3 % (2.0-8.0); NEUTROPHILS # 4.3 10^3/uL (1.5-8.5); NEUTROPHILS % 67.7 % (36.0-66.0); PLATELET COUNT, AUTOMATED 164 10^3/uL (150-450); RED BLOOD COUNT 3.71 10^6/uL (4.00-5.40); WHITE BLOOD COUNT 6.3 10^3/uL (4.0-10.0)
[2023-06-03 12:10] LABS: BLOOD UREA NITROGEN 8 MG/DL (9-23); CALCIUM LEVEL 8.9 MG/DL (8.3-10.6); CARBON DIOXIDE LEVEL 27 MMOL/L (20-31); CHLORIDE LEVEL 96 MMOL/L (98-107); CREATININE FOR GFR 0.62 MG/DL (0.55-1.30); GLOMERULAR FILTRATION RATE > 60.0 (>39); GLUCOSE, FASTING 108 MG/DL (74-106); POTASSIUM SERUM 3.8 MMOL/L (3.5-5.1); SODIUM LEVEL 134 MMOL/L (136-145)
[2023-06-03 12:11] LABS: ERYTHROCYTE SEDIMENTATION RATE 117 mm/hr (0-30)
[2023-06-03 12:21] LABS: PROCALCITONIN 0.09 ng/ml
[2023-06-04 16:09] LABS: BODY FLUID CULTURE Not indicated. (.); LEGIONELLA ANTIGEN URINE Negative (Negative); ORGANISM ID Not indicated. (.); SPECIMEN SOURCE Urine (.); URINE STREP PNEUMONIAE ANTIGEN Negative (Negative)
== END 2023-06-03 15:10 | disposition home or self-care (01) | DRG 178 ==
LOC: EDBD 19:37 → M ED 19:37 → M ED INP 23:30 → M PCU 06-02 01:25
PROVIDERS: ADMIT Family Medicine; ATTEND General Practice
DX: J15.6 Pneumonia due to other Gram-negative bacteria (principal); C34.2 Malignant neoplasm of middle lobe, bronchus or lung; I10 Essential (primary) hypertension; E78.5 Hyperlipidemia, unspecified; F41.9 Anxiety disorder, unspecified; R29.6 Repeated falls; R11.2 Nausea with vomiting, unspecified; K59.09 Other constipation; K21.9 Gastro-esophageal reflux disease without esophagitis; I95.1 Orthostatic hypotension; Z90.79 Acquired absence of other genital organ(s); Z87.891 Personal history of nicotine dependence; Z79.01 Long term (current) use of anticoagulants; Z79.899 Other long term (current) drug therapy; Z88.8 Allergy status to other drugs, medicaments and biological substances; Z20.822 Contact with and (suspected) exposure to COVID-19; S80.01XA Contusion of right knee, initial encounter; S80.02XA Contusion of left knee, initial encounter; W06.XXXA Fall from bed, initial encounter; Y92.009 Unspecified place in unspecified non-institutional (private) residence as the place of occurrence of the external cause

== ENCOUNTER → 2023-06-09 | Outpatient (CLI) | payer MEDICARE ==
[~2023-06-09] MED LIST changes: +BACI1CAP PO; +CALC1TAB30 PO; +CARB450I12 IV; +CEFD300CAP PO; +DOXY-444 PO; +HYDR12.55 PO; +OMEP1CAP73 PO; +VITATAB73 PO
== END ==
LOC: M WUC 11:27
PROVIDERS: ATTEND Internal Medicine
DX: R06.02 Shortness of breath (principal); K44.9 Diaphragmatic hernia without obstruction or gangrene; I70.0 Atherosclerosis of aorta

== ENCOUNTER 2023-06-16 13:20 | Inpatient (IN) | payer MEDICARE ==
[~2023-06-16] VITALS: Ht 154.9 cm; Wt 72.7 kg
[2023-06-16] MEDS ORDERED: NS 500 ML IV ONE (13:55)
[2023-06-16] MEDS ORDERED: NS 1,000 ML IV SCH (13:55)
[2023-06-16 14:26] LABS: BASO % 0.6 % (0.0-1.0); EOS # 0.1 10^3/uL (0.0-0.5); EOS % 1.1 % (0.0-3.0); HEMATOCRIT 41.9 % (36.0-47.0); HEMOGLOBIN 13.8 g/dl (12.0-15.5); LYMPH # 0.7 10^3/uL (1.5-5.0); MEAN CORPUSCULAR HEMOGLOBIN 34.4 pg (27.0-33.0); MEAN CORPUSCULAR HGB CONC 32.9 g/dl (32.0-36.5); MEAN CORPUSCULAR VOLUME 104.5 fl (80.0-96.0); MONO % 18.1 % (2.0-8.0); NEUTROPHILS # 3.6 10^3/uL (1.5-8.5); NEUTROPHILS % 66.6 % (36.0-66.0); PLATELET COUNT, AUTOMATED 187 10^3/uL (150-450); RED BLOOD COUNT 4.01 10^6/uL (4.00-5.40); WHITE BLOOD COUNT 5.4 10^3/uL (4.0-10.0)
[2023-06-16 15:03] LABS: LIPASE 123 U/L (12-53)
[2023-06-16 15:05] LABS: ALBUMIN 2.6 G/DL (3.2-5.2); ALKALINE PHOSPHATASE 233 U/L (46-116); ALT/SGPT 139 U/L (7.0-40); AST/SGOT 361 U/L (<34); BILIRUBIN,DIRECT 0.2 MG/DL (<0.4); BILIRUBIN,TOTAL 0.4 MG/DL (0.3-1.2); BLOOD UREA NITROGEN 13 MG/DL (9-23); CARBON DIOXIDE LEVEL 26 MMOL/L (20-31); CHLORIDE LEVEL 98 MMOL/L (98-107); CREATININE FOR GFR 0.72 MG/DL (0.55-1.30); GLOMERULAR FILTRATION RATE > 60.0 (>39); GLUCOSE, FASTING 101 MG/DL (74-106); POTASSIUM SERUM 4.5 MMOL/L (3.5-5.1); SODIUM LEVEL 135 MMOL/L (136-145); TOTAL PROTEIN 6.4 G/DL (5.7-8.2)
[2023-06-16] MEDS ORDERED: ISOVUE-370 76% 100ML VIAL As Ordered ONE (16:06)
[2023-06-16] MEDS ORDERED: METOPROLOL TARTRATE 100MG TAB PO ONE (16:35)
[2023-06-16] MEDS ORDERED: METO200T28 PO (16:37)
[2023-06-16 18:16] LABS: MAGNESIUM LEVEL 1.8 MG/DL (1.8-2.4)
[2023-06-16] MEDS ORDERED: ACETAMINOPHEN TAB 650MG DOSE (2X325MG) PO PRN (18:35)
[2023-06-16] MEDS ORDERED: PROCHLORPERAZINE 10MG 2ML VIAL IV PRN (18:45)
[2023-06-16] MEDS ORDERED: ONDANSETRON 4MG 2ML VIAL IV ONE (18:55)
[2023-06-16] MEDS: LR 1,000 ML IV SCH (19:30)
[2023-06-16] MEDS ORDERED: METO100T5 PO (20:22)
[2023-06-16] MEDS ORDERED: HOME MED LIST COMPLETE! XX SCH (20:25)
[2023-06-16] MEDS ORDERED: ONDANSETRON 4MG 2ML VIAL IV PRN (22:00)
[2023-06-16] MEDS ORDERED: hydrALAZINE 20MG/ML 1ML VIAL IV PRN (22:45)
[2023-06-16] MEDS: PRAVASTATIN 20 MG TAB PO SCH (22:51)
[2023-06-16] MEDS: APIXABAN 5 MG TAB (ELIQUIS) PO SCH (22:51)
[2023-06-16] MEDS: VENLAFAXINE **XR** 75MG CAPSULE PO SCH (22:51)
[2023-06-16] MEDS: PANTOPRAZOLE 40MG TAB (PROTONIX) PO SCH (22:54)
[2023-06-17] MEDS: IPRATROPIUM 0.5MG/ALBUTEROL 2.5MG INH SOL UD 3ML (DUONEB) NEB SCH ×4 (02:34→21:58)
[2023-06-17] MEDS: guaiFENesin ER 600 MG TAB PO SCH ×2 (02:39→20:13)
[2023-06-17] MEDS: LR 1,000 ML IV SCH ×2 (04:55→14:10)
[2023-06-17 06:40] LABS: HEMATOCRIT 38.6 % (36.0-47.0); HEMOGLOBIN 12.8 g/dl (12.0-15.5); MEAN CORPUSCULAR HEMOGLOBIN 34.5 pg (27.0-33.0); MEAN CORPUSCULAR HGB CONC 33.2 g/dl (32.0-36.5); PLATELET COUNT, AUTOMATED 155 10^3/uL (150-450); RED BLOOD COUNT 3.71 10^6/uL (4.00-5.40); WHITE BLOOD COUNT 5.6 10^3/uL (4.0-10.0)
[2023-06-17 07:23] LABS: PROCALCITONIN 0.19 ng/ml
[2023-06-17 07:50] LABS: HEPATITIS B CORE ANTIBODY IGM NEGATIVE (NEGATIVE)
[2023-06-17 07:51] LABS: HEPATITIS C VIRUS ABY INDEX 0.17 INDEX (<0.8)
[2023-06-17 07:53] LABS: ALBUMIN 2.4 G/DL (3.2-5.2); ALKALINE PHOSPHATASE 198 U/L (46-116); ALT/SGPT 101 U/L (7.0-40); AST/SGOT 182 U/L (<34); BILIRUBIN,TOTAL 0.5 MG/DL (0.3-1.2); BLOOD UREA NITROGEN 9 MG/DL (9-23); CALCIUM LEVEL 8.2 MG/DL (8.3-10.6); CARBON DIOXIDE LEVEL 26 MMOL/L (20-31); CHLORIDE LEVEL 102 MMOL/L (98-107); CREATININE FOR GFR 0.61 MG/DL (0.55-1.30); GLOMERULAR FILTRATION RATE > 60.0 (>39); GLUCOSE, FASTING 107 MG/DL (74-106); MAGNESIUM LEVEL 1.5 MG/DL (1.8-2.4); POTASSIUM SERUM 3.8 MMOL/L (3.5-5.1); SODIUM LEVEL 138 MMOL/L (136-145); TOTAL PROTEIN 5.6 G/DL (5.7-8.2)
[2023-06-17] MEDS ORDERED: MAGNESIUM OXIDE 400MG TAB (MAG-OX) PO SCH (09:00)
[2023-06-17] MEDS: DOCUSATE SODIUM 100MG CAPSULE PO SCH ×2 (09:00→20:13)
[2023-06-17] MEDS: FOLIC ACID 1MG TAB PO SCH (09:15)
[2023-06-17] MEDS: PANTOPRAZOLE 40MG TAB (PROTONIX) PO SCH ×2 (09:15→20:11)
[2023-06-17] MEDS: APIXABAN 5 MG TAB (ELIQUIS) PO SCH ×2 (09:16→20:12)
[2023-06-17] MEDS: METOPROLOL TARTRATE 100MG TAB PO SCH ×2 (09:16→20:12)
[2023-06-17] MEDS ORDERED: MIRALAX *UNIT DOSE* 17GM PACKET PO PRN (11:15)
[2023-06-17] MEDS: MAG SULF 1GM/100ML (MAG RUN) 1 GM in IV 1 EA IV SCH ×2 (12:01→13:05)
[2023-06-17 13:45] VITALS: BP 154/76; TEMP 98.1; O2SAT 92
[2023-06-17 18:00] VITALS: BP 152/78; TEMP 97.7; O2SAT 93
[2023-06-17] MEDS: VENLAFAXINE **XR** 75MG CAPSULE PO SCH (20:11)
[2023-06-17] MEDS: MAGNESIUM OXIDE 400MG TAB (MAG-OX) PO SCH (20:11)
[2023-06-17] MEDS: PRAVASTATIN 20 MG TAB PO SCH (20:13)
[2023-06-17] MEDS: SENNA 8.6 MG TAB (SENOKOT) PO SCH (20:13)
[2023-06-17 20:15] VITALS: BP 148/79; TEMP 98.1; O2SAT 95
[2023-06-17] MEDS ORDERED: RAMELTEON 8 MG TAB (ROZEREM) PO PRN (20:55)
[2023-06-18] VITALS (7 sets, daily range): BP systolic 127–140; BP diastolic 74–98; TEMP 96.3–98.6; O2SAT 89–96
[2023-06-18] MEDS: LR 1,000 ML IV SCH (00:08)
[2023-06-18] MEDS: IPRATROPIUM 0.5MG/ALBUTEROL 2.5MG INH SOL UD 3ML (DUONEB) NEB SCH ×4 (01:17→19:19)
[2023-06-18] MEDS ORDERED: METOPROLOL 5 MG/5 ML VIAL IV STA (01:27)
[2023-06-18] MEDS ORDERED: METOPROLOL TART 25 MG TABLET PO ONE ×2 (02:00→18:50)
[2023-06-18 06:45] LABS: HEMATOCRIT 37.8 % (36.0-47.0); HEMOGLOBIN 12.7 g/dl (12.0-15.5); MEAN CORPUSCULAR HEMOGLOBIN 34.6 pg (27.0-33.0); MEAN CORPUSCULAR HGB CONC 33.6 g/dl (32.0-36.5); PLATELET COUNT, AUTOMATED 147 10^3/uL (150-450); RED BLOOD COUNT 3.67 10^6/uL (4.00-5.40); WHITE BLOOD COUNT 6.1 10^3/uL (4.0-10.0)
[2023-06-18 07:04] LABS: ALBUMIN 2.3 G/DL (3.2-5.2); ALKALINE PHOSPHATASE 177 U/L (46-116); ALT/SGPT 80 U/L (7.0-40); AST/SGOT 118 U/L (<34); BILIRUBIN,TOTAL 0.6 MG/DL (0.3-1.2); BLOOD UREA NITROGEN 5 MG/DL (9-23); CALCIUM LEVEL 8.1 MG/DL (8.3-10.6); CARBON DIOXIDE LEVEL 27 MMOL/L (20-31); CHLORIDE LEVEL 98 MMOL/L (98-107); CREATININE FOR GFR 0.57 MG/DL (0.55-1.30); GLOMERULAR FILTRATION RATE > 60.0 (>39); GLUCOSE, FASTING 103 MG/DL (74-106); POTASSIUM SERUM 3.5 MMOL/L (3.5-5.1); SODIUM LEVEL 134 MMOL/L (136-145); TOTAL PROTEIN 5.4 G/DL (5.7-8.2)
[2023-06-18] MEDS: APIXABAN 5 MG TAB (ELIQUIS) PO SCH ×2 (08:54→21:23)
[2023-06-18] MEDS: FOLIC ACID 1MG TAB PO SCH (08:54)
[2023-06-18] MEDS: PANTOPRAZOLE 40MG TAB (PROTONIX) PO SCH ×2 (08:55→21:23)
[2023-06-18] MEDS: MAGNESIUM OXIDE 400MG TAB (MAG-OX) PO SCH ×3 (08:55→21:22)
[2023-06-18] MEDS: METOPROLOL TARTRATE 100MG TAB PO SCH (08:55)
[2023-06-18] MEDS: guaiFENesin ER 600 MG TAB PO SCH ×2 (08:55→21:23)
[2023-06-18] MEDS: DOCUSATE SODIUM 100MG CAPSULE PO SCH ×2 (08:56→21:23)
[2023-06-18 09:06] LABS: MAGNESIUM LEVEL 1.5 MG/DL (1.8-2.4)
[2023-06-18] MEDS ORDERED: MAG SULF 1GM/100ML (MAG RUN) 1 GM in IV 1 EA IV ONE (10:00)
[2023-06-18] MEDS ORDERED: PILL CUTTER 1 EACH XX PRN (17:45)
[2023-06-18] MEDS: PRAVASTATIN 20 MG TAB PO SCH (21:22)
[2023-06-18] MEDS: VENLAFAXINE **XR** 75MG CAPSULE PO SCH (21:22)
[2023-06-18] MEDS: SENNA 8.6 MG TAB (SENOKOT) PO SCH (21:22)
[2023-06-18] MEDS ORDERED: METOPROLOL TART 25 MG TABLET PO SCH (22:00)
[2023-06-19 02:10] VITALS: BP 133/93; TEMP 97.9; O2SAT 94
[2023-06-19] MEDS: IPRATROPIUM 0.5MG/ALBUTEROL 2.5MG INH SOL UD 3ML (DUONEB) NEB SCH ×4 (02:56→19:24)
[2023-06-19 05:32] VITALS: BP 136/96
[2023-06-19] MEDS: METOPROLOL TART 25 MG TABLET PO SCH ×2 (05:33→14:00)
[2023-06-19 06:00] VITALS: BP 134/91; TEMP 97.2; O2SAT 93
[2023-06-19 06:15] LABS: HEMATOCRIT 37.8 % (36.0-47.0); HEMOGLOBIN 12.7 g/dl (12.0-15.5); MEAN CORPUSCULAR HEMOGLOBIN 34.6 pg (27.0-33.0); MEAN CORPUSCULAR HGB CONC 33.6 g/dl (32.0-36.5); PLATELET COUNT, AUTOMATED 130 10^3/uL (150-450); RED BLOOD COUNT 3.67 10^6/uL (4.00-5.40); WHITE BLOOD COUNT 5.8 10^3/uL (4.0-10.0)
[2023-06-19 06:36] LABS: ALBUMIN 2.3 G/DL (3.2-5.2); ALKALINE PHOSPHATASE 173 U/L (46-116); ALT/SGPT 80 U/L (7.0-40); AST/SGOT 114 U/L (<34); BILIRUBIN,TOTAL 0.6 MG/DL (0.3-1.2); BLOOD UREA NITROGEN 7 MG/DL (9-23); CALCIUM LEVEL 8.1 MG/DL (8.3-10.6); CARBON DIOXIDE LEVEL 26 MMOL/L (20-31); CHLORIDE LEVEL 98 MMOL/L (98-107); CREATININE FOR GFR 0.57 MG/DL (0.55-1.30); GLOMERULAR FILTRATION RATE > 60.0 (>39); GLUCOSE, FASTING 93 MG/DL (74-106); MAGNESIUM LEVEL 1.7 MG/DL (1.8-2.4); POTASSIUM SERUM 3.2 MMOL/L (3.5-5.1); SODIUM LEVEL 132 MMOL/L (136-145); TOTAL PROTEIN 5.6 G/DL (5.7-8.2)
[2023-06-19] MEDS ORDERED: POTASSIUM CHLORIDE 10MEQ SR TABLET PO ONE (09:00)
[2023-06-19] MEDS ORDERED: MAG SULF 1GM/100ML (MAG RUN) 1 GM in IV 1 EA IV ONE (09:00)
[2023-06-19] MEDS: NS 1,000 ML IV SCH ×2 (09:33→19:33)
[2023-06-19] MEDS: guaiFENesin ER 600 MG TAB PO SCH ×2 (09:35→21:05)
[2023-06-19] MEDS: FOLIC ACID 1MG TAB PO SCH (09:35)
[2023-06-19] MEDS: APIXABAN 5 MG TAB (ELIQUIS) PO SCH ×2 (09:35→21:05)
[2023-06-19] MEDS: DOCUSATE SODIUM 100MG CAPSULE PO SCH ×2 (09:36→21:05)
[2023-06-19] MEDS: PANTOPRAZOLE 40MG TAB (PROTONIX) PO SCH ×2 (09:36→21:05)
[2023-06-19] MEDS: MAGNESIUM OXIDE 400MG TAB (MAG-OX) PO SCH ×3 (09:36→21:02)
[2023-06-19 10:00] VITALS: BP 110/70; TEMP 97.2; O2SAT 95
[2023-06-19 14:00] VITALS: BP 106/65; TEMP 97.3; O2SAT 94
[2023-06-19 20:50] VITALS: BP 115/61; TEMP 97.7; O2SAT 92
[2023-06-19] MEDS: VENLAFAXINE **XR** 75MG CAPSULE PO SCH (21:03)
[2023-06-19] MEDS: SENNA 8.6 MG TAB (SENOKOT) PO SCH (21:03)
[2023-06-19] MEDS: METOPROLOL TARTRATE 100MG TAB PO SCH (21:05)
[2023-06-19] MEDS: PRAVASTATIN 20 MG TAB PO SCH (21:06)
[2023-06-20 02:00] VITALS: BP 139/76; TEMP 97.9; O2SAT 96
[2023-06-20] MEDS: IPRATROPIUM 0.5MG/ALBUTEROL 2.5MG INH SOL UD 3ML (DUONEB) NEB SCH ×3 (02:56→14:50)
[2023-06-20] MEDS: NS 1,000 ML IV SCH (03:30)
[2023-06-20 05:30] VITALS: BP 135/87; TEMP 98.2; O2SAT 96
[2023-06-20 06:30] LABS: HEMOGLOBIN 12.5 g/dl (12.0-15.5); MEAN CORPUSCULAR HEMOGLOBIN 34.2 pg (27.0-33.0); MEAN CORPUSCULAR HGB CONC 32.1 g/dl (32.0-36.5); MEAN CORPUSCULAR VOLUME 106.6 fl (80.0-96.0); PLATELET COUNT, AUTOMATED 137 10^3/uL (150-450); RED BLOOD COUNT 3.66 10^6/uL (4.00-5.40)
[2023-06-20 07:05] LABS: ALBUMIN 2.2 G/DL (3.2-5.2); ALKALINE PHOSPHATASE 178 U/L (46-116); ALT/SGPT 75 U/L (7.0-40); AST/SGOT 101 U/L (<34); BILIRUBIN,TOTAL 0.6 MG/DL (0.3-1.2); BLOOD UREA NITROGEN 9 MG/DL (9-23); CALCIUM LEVEL 8.1 MG/DL (8.3-10.6); CARBON DIOXIDE LEVEL 27 MMOL/L (20-31); CHLORIDE LEVEL 103 MMOL/L (98-107); CREATININE FOR GFR 0.62 MG/DL (0.55-1.30); GLOMERULAR FILTRATION RATE > 60.0 (>39); GLUCOSE, FASTING 94 MG/DL (74-106); POTASSIUM SERUM 4.3 MMOL/L (3.5-5.1); SODIUM LEVEL 138 MMOL/L (136-145); TOTAL PROTEIN 5.3 G/DL (5.7-8.2)
[2023-06-20] MEDS ORDERED: MIRA1POW3 PO (07:17)
[2023-06-20] MEDS ORDERED: PANT40TA29 PO (07:17)
[2023-06-20] MEDS ORDERED: MAGN400T2 PO (07:17)
[2023-06-20] MEDS ORDERED: COLA100C5 PO (07:17)
[2023-06-20] MEDS: DOCUSATE SODIUM 100MG CAPSULE PO SCH (09:00)
[2023-06-20 09:15] VITALS: BP 130/72
[2023-06-20 09:20] VITALS: BP 130/72
[2023-06-20] MEDS: METOPROLOL TARTRATE 100MG TAB PO SCH (09:20)
[2023-06-20] MEDS: APIXABAN 5 MG TAB (ELIQUIS) PO SCH (09:20)
[2023-06-20] MEDS: guaiFENesin ER 600 MG TAB PO SCH (09:20)
[2023-06-20] MEDS: MAGNESIUM OXIDE 400MG TAB (MAG-OX) PO SCH (09:20)
[2023-06-20] MEDS: FOLIC ACID 1MG TAB PO SCH (09:22)
[2023-06-20] MEDS: PANTOPRAZOLE 40MG TAB (PROTONIX) PO SCH (09:22)
[2023-06-20 10:00] VITALS: BP 137/94; TEMP 97.9; O2SAT 96
[2023-06-20] MEDS ORDERED: ISOVUE-370 76% 100ML VIAL As Ordered ONE (10:57)
== END 2023-06-20 15:24 | disposition home health service (06) | DRG 392 ==
LOC: M ED 13:20 → M ED INP 18:35 → M MSPAV 06-17 13:44
PROVIDERS: ADMIT Internal Medicine; ATTEND Internal Medicine
PROC: B246ZZZ Ultrasonography of Right and Left Heart (ICD-10-PCS; principal; 2023-06-20)
DX: R11.0 Nausea (principal); J91.0 Malignant pleural effusion; C34.91 Malignant neoplasm of unspecified part of right bronchus or lung; E87.1 Hypo-osmolality and hyponatremia; R63.0 Anorexia; R53.1 Weakness; I48.91 Unspecified atrial fibrillation; K44.9 Diaphragmatic hernia without obstruction or gangrene; I10 Essential (primary) hypertension; E78.5 Hyperlipidemia, unspecified; E83.42 Hypomagnesemia; R53.81 Other malaise; F41.9 Anxiety disorder, unspecified; R29.6 Repeated falls; I95.1 Orthostatic hypotension; R74.8 Abnormal levels of other serum enzymes; G25.0 Essential tremor; K21.9 Gastro-esophageal reflux disease without esophagitis; T45.1X5A Adverse effect of antineoplastic and immunosuppressive drugs, initial encounter; R74.01 Elevation of levels of liver transaminase levels; K59.09 Other constipation; E87.6 Hypokalemia; K76.0 Fatty (change of) liver, not elsewhere classified; G47.00 Insomnia, unspecified; Z79.01 Long term (current) use of anticoagulants; Z79.899 Other long term (current) drug therapy; Z87.891 Personal history of nicotine dependence; Z88.8 Allergy status to other drugs, medicaments and biological substances; Z79.69 Long term (current) use of other immunomodulators and immunosuppressants

== ENCOUNTER → 2023-07-07 | Outpatient (CLI) | payer MEDICARE ==
[~2023-07-07] MED LIST changes: +DEXA2TA PO; +DOCU100C16 PO; +METO200T28 PO; +MIRA1POW3 PO; +PANT40TA29 PO; +TUMS750C22 PO
== END ==
LOC: M ONCM 09:09
PROVIDERS: ATTEND Dietitian, Registered
DX: C34.90 Malignant neoplasm of unspecified part of unspecified bronchus or lung (principal); J91.0 Malignant pleural effusion; Z68.32 Body mass index [BMI] 32.0-32.9, adult; Z71.3 Dietary counseling and surveillance

== ENCOUNTER 2023-07-13 11:01 | Inpatient (IN) | payer MEDICARE ==
[~2023-07-13] VITALS: Ht 154.9 cm; Wt 82.0 kg
[~2023-07-13 11:01] MED LIST changes: -DOCU100C16 PO
[2023-07-13] MEDS ORDERED: PANTOPRAZOLE 40MG VIAL IV ONE (13:50)
[2023-07-13] MEDS ORDERED: PROMETHAZINE 25MG/ML 1ML VIAL IV ONE (13:50)
[2023-07-13] MEDS ORDERED: NS 1,000 ML IV ONE (13:50)
[2023-07-13] MEDS: METOPROLOL 5 MG/5 ML VIAL IV PRN ×5 (14:40→18:21)
[2023-07-13 14:49] LABS: BASO % 0.2 % (0.0-1.0); EOS % 0.3 % (0.0-3.0); HEMATOCRIT 41.2 % (36.0-47.0); LYMPH % 6.9 % (24.0-44.0); MEAN CORPUSCULAR HEMOGLOBIN 34.7 pg (27.0-33.0); MEAN CORPUSCULAR VOLUME 102.2 fl (80.0-96.0); MONO % 12.5 % (2.0-8.0); NEUTROPHILS # 11.1 10^3/uL (1.5-8.5); NEUTROPHILS % 79.5 % (36.0-66.0); PLATELET COUNT, AUTOMATED 218 10^3/uL (150-450); RED BLOOD COUNT 4.03 10^6/uL (4.00-5.40)
[2023-07-13 15:03] LABS: INR 1.38; PROTHROMBIN TIME 16.6 SECONDS (12.5-14.5)
[2023-07-13 15:04] LABS: PARTIAL THROMBOPLASTIN TIME 37.2 SECONDS (24.8-34.2)
[2023-07-13 15:11] LABS: MONO # 1.8 10^3/uL (0.0-0.8)
[2023-07-13 15:12] LABS: CK-MB VALUE MASS 1.8 NG/ML (<3.6)
[2023-07-13 15:13] LABS: MB/CK RELATIVE INDEX 3.91 (< OR =4)
[2023-07-13 15:14] LABS: ALBUMIN 2.3 G/DL (3.2-5.2); BILIRUBIN,DIRECT 0.3 MG/DL (<0.4); BILIRUBIN,TOTAL 0.6 MG/DL (0.3-1.2); CALCIUM LEVEL 8.3 MG/DL (8.3-10.6); CREATININE FOR GFR 1.12 MG/DL (0.55-1.30); GLOMERULAR FILTRATION RATE 50.4 (>39); POTASSIUM SERUM 4.7 MMOL/L (3.5-5.1); TOTAL PROTEIN 5.7 G/DL (5.7-8.2)
[2023-07-13] MEDS ORDERED: ISOVUE-370 76% 100ML VIAL As Ordered ONE (15:16)
[2023-07-13 15:51] LABS: RSV AMPLIFICATION NEGATIVE (NEGATIVE)
[2023-07-13] MEDS ORDERED: METOPROLOL TARTRATE 100MG TAB PO ONE (15:55)
[2023-07-13 17:20] LABS: CK-MB VALUE MASS 1.5 NG/ML (<3.6)
[2023-07-13 17:21] LABS: MB/CK RELATIVE INDEX 4.05 (< OR =4)
[2023-07-13] MEDS ORDERED: PROMETHAZINE 25MG/ML 1ML VIAL IV PRN (20:00)
[2023-07-13] MEDS: ONDANSETRON 4MG ORAL DISINTEGRATING TAB SL SCH ×2 (21:37→23:58)
[2023-07-13] MEDS: PANTOPRAZOLE 40MG VIAL IV SCH (21:38)
[2023-07-13 22:28] VITALS: BP 126/59; TEMP 97.8; O2SAT 98
[2023-07-13] MEDS: RAMELTEON 8 MG TAB (ROZEREM) PO PRN (23:58)
[2023-07-14] MEDS ORDERED: DOCU100C16 PO (00:21)
[2023-07-14] MEDS ORDERED: MAGN400T2 PO (00:23)
[2023-07-14] MEDS ORDERED: HOME MED LIST COMPLETE! XX SCH (00:25)
[2023-07-14] MEDS: MICONAZOLE 2 % POWDER (DESENEX) TOP SCH ×3 (00:29→20:11)
[2023-07-14] MEDS: APIXABAN 5 MG TAB (ELIQUIS) PO SCH ×3 (00:47→20:11)
[2023-07-14 04:00] VITALS: BP 137/70; TEMP 96.9; O2SAT 98
[2023-07-14] MEDS ORDERED: SODIUM CHLORIDE 0.9% INJ 10 ML SYR IV PRN (04:30)
[2023-07-14 05:03] LABS: BASO # 0.1 10^3/uL (0.0-0.2); BASO % 0.5 % (0.0-1.0); EOS # 0.4 10^3/uL (0.0-0.5); EOS % 3.4 % (0.0-3.0); HEMOGLOBIN 12.5 g/dl (12.0-15.5); LYMPH # 0.9 10^3/uL (1.5-5.0); LYMPH % 8.5 % (24.0-44.0); MEAN CORPUSCULAR HGB CONC 33.8 g/dl (32.0-36.5); MEAN CORPUSCULAR VOLUME 103.6 fl (80.0-96.0); MONO % 14.2 % (2.0-8.0); NEUTROPHILS % 72.6 % (36.0-66.0); PLATELET COUNT, AUTOMATED 212 10^3/uL (150-450); RED BLOOD COUNT 3.57 10^6/uL (4.00-5.40)
[2023-07-14 05:28] LABS: CALCIUM LEVEL 7.8 MG/DL (8.3-10.6); CREATININE FOR GFR 1.26 MG/DL (0.55-1.30); POTASSIUM SERUM 4.6 MMOL/L (3.5-5.1)
[2023-07-14 05:32] LABS: MONO # 1.6 10^3/uL (0.0-0.8)
[2023-07-14] MEDS: METOPROLOL 5 MG/5 ML VIAL IV PRN (05:36)
[2023-07-14] MEDS: ONDANSETRON 4MG ORAL DISINTEGRATING TAB SL SCH ×4 (06:00→23:58)
[2023-07-14 07:45] VITALS: BP 113/71; TEMP 97.3; O2SAT 99
[2023-07-14] MEDS: PANTOPRAZOLE 40MG VIAL IV SCH ×2 (08:29→20:11)
[2023-07-14] MEDS: METOPROLOL TARTRATE 100MG TAB PO SCH ×2 (08:31→20:14)
[2023-07-14] MEDS: SODIUM CHLORIDE 0.9% INJ 10 ML SYR IV SCH (08:33)
[2023-07-14 08:36] VITALS: O2SAT 96
[2023-07-14] MEDS ORDERED: NYSTATIN CREAM 15GM XX SCH (09:00)
[2023-07-14] MEDS ORDERED: FLEET ENEMA PR ONE (12:00)
[2023-07-14] MEDS: BISACODYL 10MG SUPP PR SCH ×2 (14:59→20:15)
[2023-07-14 15:22] VITALS: BP 100/59; TEMP 97.8; O2SAT 97
[2023-07-14 20:00] VITALS: BP 105/63; TEMP 96.7; O2SAT 99
[2023-07-14] MEDS: SENOKOT S TAB PO SCH (20:12)
[2023-07-14] MEDS: RAMELTEON 8 MG TAB (ROZEREM) PO PRN (20:16)
[2023-07-14 23:47] VITALS: BP 134/64; TEMP 97.3; O2SAT 94
[2023-07-15 04:00] VITALS: BP 90/60; TEMP 96.6; O2SAT 97
[2023-07-15 05:20] LABS: BASO # 0.1 10^3/uL (0.0-0.2); BASO % 0.5 % (0.0-1.0); EOS # 0.4 10^3/uL (0.0-0.5); EOS % 3.8 % (0.0-3.0); HEMATOCRIT 38.3 % (36.0-47.0); HEMOGLOBIN 12.9 g/dl (12.0-15.5); LYMPH # 0.8 10^3/uL (1.5-5.0); MEAN CORPUSCULAR HEMOGLOBIN 34.5 pg (27.0-33.0); MEAN CORPUSCULAR HGB CONC 33.7 g/dl (32.0-36.5); MEAN CORPUSCULAR VOLUME 102.4 fl (80.0-96.0); MONO % 15.6 % (2.0-8.0); NEUTROPHILS # 7.1 10^3/uL (1.5-8.5); PLATELET COUNT, AUTOMATED 229 10^3/uL (150-450); RED BLOOD COUNT 3.74 10^6/uL (4.00-5.40)
[2023-07-15 05:42] LABS: MONO # 1.6 10^3/uL (0.0-0.8)
[2023-07-15] MEDS: ONDANSETRON 4MG ORAL DISINTEGRATING TAB SL SCH ×4 (06:08→23:46)
[2023-07-15 07:55] VITALS: BP 94/66; TEMP 97.8; O2SAT 96
[2023-07-15] MEDS: PANTOPRAZOLE 40MG VIAL IV SCH ×2 (09:07→20:26)
[2023-07-15] MEDS: SENOKOT S TAB PO SCH ×2 (09:08→20:27)
[2023-07-15] MEDS: APIXABAN 5 MG TAB (ELIQUIS) PO SCH ×2 (09:08→18:56)
[2023-07-15] MEDS: SODIUM CHLORIDE 0.9% INJ 10 ML SYR IV SCH (09:08)
[2023-07-15] MEDS: METOPROLOL TARTRATE 100MG TAB PO SCH ×2 (09:08→20:28)
[2023-07-15] MEDS: MICONAZOLE 2 % POWDER (DESENEX) TOP SCH ×2 (09:10→21:00)
[2023-07-15] MEDS ORDERED: FLEET ENEMA PR SCH (11:00)
[2023-07-15] MEDS: ACETAMINOPHEN TAB 650MG DOSE (2X325MG) PO PRN ×2 (11:21→20:26)
[2023-07-15] MEDS: BISACODYL 10MG SUPP PR SCH ×2 (11:29→20:28)
[2023-07-15 12:40] VITALS: BP 112/63; TEMP 96.5; O2SAT 96
[2023-07-15 15:00] VITALS: BP 108/60; TEMP 97.3; O2SAT 96
[2023-07-15 20:06] VITALS: BP 113/64; TEMP 97.7; O2SAT 96
[2023-07-15] MEDS: RAMELTEON 8 MG TAB (ROZEREM) PO PRN (20:26)
[2023-07-16] MEDS ORDERED: MORPHINE 2 MG/ML 1ML VIAL IV ONE ×2 (02:00→20:10)
[2023-07-16 04:54] VITALS: BP 114/63; TEMP 98.1; O2SAT 95
[2023-07-16] MEDS: ONDANSETRON 4MG ORAL DISINTEGRATING TAB SL SCH ×4 (05:09→23:43)
[2023-07-16] MEDS: ACETAMINOPHEN TAB 650MG DOSE (2X325MG) PO PRN (05:34)
[2023-07-16 07:05] LABS: BASO # 0.1 10^3/uL (0.0-0.2); BASO % 0.7 % (0.0-1.0); EOS # 0.5 10^3/uL (0.0-0.5); EOS % 4.9 % (0.0-3.0); HEMATOCRIT 38.4 % (36.0-47.0); LYMPH # 0.8 10^3/uL (1.5-5.0); MEAN CORPUSCULAR HEMOGLOBIN 34.7 pg (27.0-33.0); MEAN CORPUSCULAR HGB CONC 33.9 g/dl (32.0-36.5); MEAN CORPUSCULAR VOLUME 102.4 fl (80.0-96.0); MONO # 1.3 10^3/uL (0.0-0.8); MONO % 14.6 % (2.0-8.0); NEUTROPHILS # 6.3 10^3/uL (1.5-8.5); NEUTROPHILS % 68.9 % (36.0-66.0); PLATELET COUNT, AUTOMATED 242 10^3/uL (150-450); RED BLOOD COUNT 3.75 10^6/uL (4.00-5.40); WHITE BLOOD COUNT 9.1 10^3/uL (4.0-10.0)
[2023-07-16 07:29] LABS: CALCIUM LEVEL 7.8 MG/DL (8.3-10.6); CREATININE FOR GFR 1.08 MG/DL (0.55-1.30); GLOMERULAR FILTRATION RATE 52.5 (>39)
[2023-07-16] MEDS: APIXABAN 5 MG TAB (ELIQUIS) PO SCH (09:00)
[2023-07-16] MEDS ORDERED: LIDOCAINE 5% (LIDODERM) PATCH TD SCH (09:00)
[2023-07-16 09:03] VITALS: BP 107/71
[2023-07-16] MEDS: SENOKOT S TAB PO SCH ×2 (09:14→22:19)
[2023-07-16] MEDS: METOPROLOL TARTRATE 100MG TAB PO SCH ×2 (09:15→22:18)
[2023-07-16] MEDS: SODIUM CHLORIDE 0.9% INJ 10 ML SYR IV SCH (09:15)
[2023-07-16] MEDS: PANTOPRAZOLE 40MG VIAL IV SCH (09:15)
[2023-07-16] MEDS: MICONAZOLE 2 % POWDER (DESENEX) TOP SCH ×2 (09:16→21:00)
[2023-07-16] MEDS ORDERED: ACETAMINOPHEN 500 MG TAB PO PRN (09:55)
[2023-07-16] MEDS ORDERED: KETOROLAC 30 MG/ML 1ML VIAL IV ONE (10:15)
[2023-07-16 14:00] VITALS: BP 104/63; TEMP 97.2; O2SAT 96
[2023-07-16] MEDS ORDERED: traMADol 50 MG TAB PO ONE (16:15)
[2023-07-16] MEDS ORDERED: NAPROXEN 250 MG TAB PO SCH (21:00)
[2023-07-16 21:10] VITALS: BP 112/66; TEMP 96.3; O2SAT 96
[2023-07-16] MEDS: PANTOPRAZOLE 40MG TAB (PROTONIX) PO SCH (22:19)
[2023-07-16] MEDS: ACETAMINOPHEN 500 MG TAB PO SCH (22:20)
[2023-07-17] MEDS ORDERED: MORPHINE 2 MG/ML 1ML VIAL IV ONE (04:00)
[2023-07-17 05:32] VITALS: BP 102/64; TEMP 97; O2SAT 94
[2023-07-17] MEDS: ONDANSETRON 4MG ORAL DISINTEGRATING TAB SL SCH ×3 (05:38→17:12)
[2023-07-17 06:51] LABS: BASO # 0.1 10^3/uL (0.0-0.2); BASO % 0.7 % (0.0-1.0); EOS # 0.5 10^3/uL (0.0-0.5); EOS % 4.3 % (0.0-3.0); HEMATOCRIT 41.3 % (36.0-47.0); LYMPH # 0.8 10^3/uL (1.5-5.0); LYMPH % 7.1 % (24.0-44.0); MEAN CORPUSCULAR HEMOGLOBIN 34.1 pg (27.0-33.0); MEAN CORPUSCULAR HGB CONC 33.9 g/dl (32.0-36.5); MEAN CORPUSCULAR VOLUME 100.7 fl (80.0-96.0); MONO # 1.3 10^3/uL (0.0-0.8); MONO % 12.2 % (2.0-8.0); NEUTROPHILS # 7.9 10^3/uL (1.5-8.5); NEUTROPHILS % 73.6 % (36.0-66.0); PLATELET COUNT, AUTOMATED 283 10^3/uL (150-450); WHITE BLOOD COUNT 10.7 10^3/uL (4.0-10.0)
[2023-07-17 07:07] LABS: CALCIUM LEVEL 7.9 MG/DL (8.3-10.6); CREATININE FOR GFR 1.79 MG/DL (0.55-1.30); GLOMERULAR FILTRATION RATE 29.3 (>39); POTASSIUM SERUM 4.4 MMOL/L (3.5-5.1)
[2023-07-17] MEDS: SENOKOT S TAB PO SCH ×2 (08:46→20:42)
[2023-07-17] MEDS: ACETAMINOPHEN 500 MG TAB PO SCH ×2 (08:47→20:43)
[2023-07-17] MEDS: PANTOPRAZOLE 40MG TAB (PROTONIX) PO SCH ×2 (08:47→20:44)
[2023-07-17] MEDS: traMADol 50 MG TAB PO SCH ×2 (08:48→20:45)
[2023-07-17] MEDS: METOPROLOL TARTRATE 100MG TAB PO SCH ×2 (08:48→21:00)
[2023-07-17] MEDS: SODIUM CHLORIDE 0.9% INJ 10 ML SYR IV SCH (08:49)
[2023-07-17] MEDS: MICONAZOLE 2 % POWDER (DESENEX) TOP SCH ×2 (09:00→22:09)
[2023-07-17] MEDS: LIDOCAINE 5% (LIDODERM) PATCH TD SCH (09:27)
[2023-07-17] MEDS: oxyCODONE 5MG TAB PO PRN (13:15)
[2023-07-17 14:00] VITALS: BP 92/58; TEMP 97.3; O2SAT 95
[2023-07-17] MEDS: MORPHINE 4 MG/ML 1ML VIAL IV PRN (18:55)
[2023-07-17 20:19] VITALS: BP 106/60; TEMP 97.3; O2SAT 93
[2023-07-18] MEDS: ONDANSETRON 4MG ORAL DISINTEGRATING TAB SL SCH ×4 (00:09→17:31)
[2023-07-18] MEDS: oxyCODONE 5MG TAB PO PRN ×2 (00:52→13:39)
[2023-07-18 02:07] VITALS: BP 102/62; TEMP 96.8; O2SAT 92
[2023-07-18 06:00] VITALS: BP 102/63; TEMP 97.3; O2SAT 94
[2023-07-18 06:26] LABS: BASO # 0.1 10^3/uL (0.0-0.2); BASO % 0.5 % (0.0-1.0); EOS # 0.4 10^3/uL (0.0-0.5); EOS % 3.4 % (0.0-3.0); HEMATOCRIT 41.5 % (36.0-47.0); HEMOGLOBIN 14.3 g/dl (12.0-15.5); LYMPH # 0.9 10^3/uL (1.5-5.0); LYMPH % 6.7 % (24.0-44.0); MEAN CORPUSCULAR HEMOGLOBIN 34.8 pg (27.0-33.0); MEAN CORPUSCULAR HGB CONC 34.5 g/dl (32.0-36.5); MONO # 1.4 10^3/uL (0.0-0.8); MONO % 10.7 % (2.0-8.0); NEUTROPHILS # 9.9 10^3/uL (1.5-8.5); NEUTROPHILS % 77.2 % (36.0-66.0); PLATELET COUNT, AUTOMATED 318 10^3/uL (150-450); RED BLOOD COUNT 4.11 10^6/uL (4.00-5.40); WHITE BLOOD COUNT 12.8 10^3/uL (4.0-10.0)
[2023-07-18 06:55] LABS: CALCIUM LEVEL 8.1 MG/DL (8.3-10.6); CREATININE FOR GFR 2.51 MG/DL (0.55-1.30); GLOMERULAR FILTRATION RATE 19.8 (>39); POTASSIUM SERUM 4.3 MMOL/L (3.5-5.1)
[2023-07-18 08:00] VITALS: BP 105/67; TEMP 97.3; O2SAT 95
[2023-07-18] MEDS ORDERED: NS 1,000 ML IV ONE (08:50)
[2023-07-18] MEDS: METOPROLOL TARTRATE 100MG TAB PO SCH ×2 (09:00→21:50)
[2023-07-18] MEDS: SENOKOT S TAB PO SCH ×2 (09:27→21:47)
[2023-07-18] MEDS: PANTOPRAZOLE 40MG TAB (PROTONIX) PO SCH ×2 (09:29→21:48)
[2023-07-18] MEDS: traMADol 50 MG TAB PO SCH ×2 (09:29→21:47)
[2023-07-18] MEDS: ACETAMINOPHEN 500 MG TAB PO SCH ×2 (09:30→21:48)
[2023-07-18] MEDS: LIDOCAINE 5% (LIDODERM) PATCH TD SCH (09:31)
[2023-07-18] MEDS: MICONAZOLE 2 % POWDER (DESENEX) TOP SCH ×2 (09:32→21:50)
[2023-07-18] MEDS: SODIUM CHLORIDE 0.9% INJ 10 ML SYR IV SCH (09:32)
[2023-07-18 14:00] VITALS: BP 105/68; TEMP 97.5; O2SAT 96
[2023-07-18 20:00] VITALS: BP 120/71; TEMP 97.2; O2SAT 93
[2023-07-19] MEDS: oxyCODONE 5MG TAB PO PRN ×2 (00:07→23:55)
[2023-07-19] MEDS: ONDANSETRON 4MG ORAL DISINTEGRATING TAB SL SCH ×5 (05:36→23:25)
[2023-07-19 06:00] VITALS: BP 114/74; TEMP 97.2; O2SAT 92
[2023-07-19 06:10] LABS: BASO # 0.1 10^3/uL (0.0-0.2); BASO % 0.4 % (0.0-1.0); EOS # 0.1 10^3/uL (0.0-0.5); EOS % 1.1 % (0.0-3.0); HEMATOCRIT 41.2 % (36.0-47.0); HEMOGLOBIN 14.4 g/dl (12.0-15.5); LYMPH # 0.8 10^3/uL (1.5-5.0); LYMPH % 6.5 % (24.0-44.0); MEAN CORPUSCULAR HEMOGLOBIN 34.8 pg (27.0-33.0); MEAN CORPUSCULAR VOLUME 99.5 fl (80.0-96.0); MONO # 1.3 10^3/uL (0.0-0.8); MONO % 10.2 % (2.0-8.0); NEUTROPHILS # 10.1 10^3/uL (1.5-8.5); NEUTROPHILS % 79.7 % (36.0-66.0); PLATELET COUNT, AUTOMATED 364 10^3/uL (150-450); RED BLOOD COUNT 4.14 10^6/uL (4.00-5.40); WHITE BLOOD COUNT 12.6 10^3/uL (4.0-10.0)
[2023-07-19 06:40] LABS: CALCIUM LEVEL 8.1 MG/DL (8.3-10.6); CREATININE FOR GFR 2.79 MG/DL (0.55-1.30); GLOMERULAR FILTRATION RATE 17.6 (>39); POTASSIUM SERUM 5.2 MMOL/L (3.5-5.1)
[2023-07-19] MEDS: PANTOPRAZOLE 40MG TAB (PROTONIX) PO SCH ×2 (08:36→20:23)
[2023-07-19] MEDS: SENOKOT S TAB PO SCH ×2 (08:36→20:23)
[2023-07-19] MEDS: ACETAMINOPHEN 500 MG TAB PO SCH ×2 (08:37→20:22)
[2023-07-19] MEDS: METOPROLOL TARTRATE 100MG TAB PO SCH ×2 (08:38→20:32)
[2023-07-19] MEDS: LIDOCAINE 5% (LIDODERM) PATCH TD SCH (08:39)
[2023-07-19] MEDS: traMADol 50 MG TAB PO SCH ×2 (08:39→20:23)
[2023-07-19] MEDS: SODIUM CHLORIDE 0.9% INJ 10 ML SYR IV SCH (08:39)
[2023-07-19] MEDS: MICONAZOLE 2 % POWDER (DESENEX) TOP SCH ×2 (08:43→21:15)
[2023-07-19] MEDS ORDERED: SODIUM BICARBONATE 150 MEQ in STERILE WATER LITER BAG 1,000 ML IV SCH (12:00)
[2023-07-19] MEDS: FUROSEMIDE injection 250 MG in D5W 225 ML IV SCH (12:59)
[2023-07-19] MEDS: SODIUM BICARBONATE 150 MEQ in STERILE WATER LITER BAG 1,000 ML IV SCH ×2 (13:00→23:55)
[2023-07-19] MEDS ORDERED: PATIROMER SORBITEX CALCIUM 8.4 GM POWDER PACKET (VELTASSA) PO ONE (13:00)
[2023-07-19 14:00] VITALS: BP 100/65; TEMP 97.5; O2SAT 91
[2023-07-19] MEDS: RAMELTEON 8 MG TAB (ROZEREM) PO PRN (20:21)
[2023-07-19 20:30] VITALS: BP 117/62; TEMP 98.1; O2SAT 95
[2023-07-20] MEDS: MORPHINE 4 MG/ML 1ML VIAL IV PRN ×2 (01:07→14:19)
[2023-07-20] MEDS: ONDANSETRON 4MG ORAL DISINTEGRATING TAB SL SCH ×4 (06:00→23:42)
[2023-07-20 06:10] VITALS: BP 116/76; TEMP 96.4; O2SAT 91
[2023-07-20 06:23] LABS: BASO # 0.1 10^3/uL (0.0-0.2); BASO % 0.4 % (0.0-1.0); EOS # 0.4 10^3/uL (0.0-0.5); EOS % 3.4 % (0.0-3.0); HEMATOCRIT 38.5 % (36.0-47.0); HEMOGLOBIN 13.8 g/dl (12.0-15.5); LYMPH # 0.8 10^3/uL (1.5-5.0); LYMPH % 7.1 % (24.0-44.0); MEAN CORPUSCULAR HEMOGLOBIN 34.9 pg (27.0-33.0); MEAN CORPUSCULAR HGB CONC 35.8 g/dl (32.0-36.5); MEAN CORPUSCULAR VOLUME 97.5 fl (80.0-96.0); MONO # 1.3 10^3/uL (0.0-0.8); MONO % 11.3 % (2.0-8.0); NEUTROPHILS % 75.7 % (36.0-66.0); PLATELET COUNT, AUTOMATED 373 10^3/uL (150-450); RED BLOOD COUNT 3.95 10^6/uL (4.00-5.40); WHITE BLOOD COUNT 11.8 10^3/uL (4.0-10.0)
[2023-07-20 06:41] LABS: CREATININE FOR GFR 2.94 MG/DL (0.55-1.30); GLOMERULAR FILTRATION RATE 16.5 (>39); POTASSIUM SERUM 4.9 MMOL/L (3.5-5.1)
[2023-07-20] MEDS: PANTOPRAZOLE 40MG TAB (PROTONIX) PO SCH ×2 (08:16→20:32)
[2023-07-20] MEDS: SENOKOT S TAB PO SCH ×2 (08:16→20:30)
[2023-07-20] MEDS: METOPROLOL TARTRATE 100MG TAB PO SCH ×2 (08:16→20:31)
[2023-07-20] MEDS: ACETAMINOPHEN 500 MG TAB PO SCH ×2 (08:17→20:32)
[2023-07-20] MEDS: SODIUM CHLORIDE 0.9% INJ 10 ML SYR IV SCH (08:18)
[2023-07-20] MEDS: traMADol 50 MG TAB PO SCH ×2 (08:18→20:32)
[2023-07-20] MEDS: LIDOCAINE 5% (LIDODERM) PATCH TD SCH (08:19)
[2023-07-20] MEDS: MICONAZOLE 2 % POWDER (DESENEX) TOP SCH ×2 (08:20→20:31)
[2023-07-20] MEDS: FUROSEMIDE injection 250 MG in D5W 225 ML IV SCH (11:07)
[2023-07-20] MEDS: SODIUM BICARBONATE 150 MEQ in STERILE WATER LITER BAG 1,000 ML IV SCH (11:08)
[2023-07-20 11:24] LABS: ALBUMIN 1.7 G/DL (3.2-5.2); BILIRUBIN,DIRECT 0.2 MG/DL (<0.4); BILIRUBIN,TOTAL 0.5 MG/DL (0.3-1.2); TOTAL PROTEIN 5.1 G/DL (5.7-8.2)
[2023-07-20] MEDS: SODIUM CHLORIDE 3% 500 ML IV SCH (13:04)
[2023-07-20] MEDS: oxyCODONE 5MG TAB PO PRN (13:15)
[2023-07-20 14:00] VITALS: BP 120/71; TEMP 97.7; O2SAT 95
[2023-07-20] MEDS ORDERED: PATIROMER SORBITEX CALCIUM 8.4 GM POWDER PACKET (VELTASSA) PO ONE (14:00)
[2023-07-20 21:16] VITALS: BP 123/90; TEMP 97.9; O2SAT 95
[2023-07-21] MEDS: ONDANSETRON 4MG ORAL DISINTEGRATING TAB SL SCH ×4 (05:03→23:05)
[2023-07-21 05:58] VITALS: BP 107/59; TEMP 98.7; O2SAT 96
[2023-07-21 07:39] LABS: BASO # 0.1 10^3/uL (0.0-0.2); BASO % 0.4 % (0.0-1.0); EOS # 0.2 10^3/uL (0.0-0.5); EOS % 1.8 % (0.0-3.0); HEMATOCRIT 40.2 % (36.0-47.0); HEMOGLOBIN 13.7 g/dl (12.0-15.5); LYMPH # 0.5 10^3/uL (1.5-5.0); LYMPH % 4.3 % (24.0-44.0); MEAN CORPUSCULAR HEMOGLOBIN 34.1 pg (27.0-33.0); MEAN CORPUSCULAR HGB CONC 34.1 g/dl (32.0-36.5); MONO # 1.1 10^3/uL (0.0-0.8); MONO % 9.7 % (2.0-8.0); NEUTROPHILS # 9.2 10^3/uL (1.5-8.5); NEUTROPHILS % 81.2 % (36.0-66.0); PLATELET COUNT, AUTOMATED 391 10^3/uL (150-450); RED BLOOD COUNT 4.02 10^6/uL (4.00-5.40); WHITE BLOOD COUNT 11.3 10^3/uL (4.0-10.0)
[2023-07-21 08:10] LABS: CALCIUM LEVEL 7.8 MG/DL (8.3-10.6); CREATININE FOR GFR 2.78 MG/DL (0.55-1.30); GLOMERULAR FILTRATION RATE 17.6 (>39); POTASSIUM SERUM 4.8 MMOL/L (3.5-5.1)
[2023-07-21] MEDS: METOPROLOL TARTRATE 100MG TAB PO SCH ×2 (09:00→21:00)
[2023-07-21] MEDS: SODIUM CHLORIDE 3% 500 ML IV SCH ×2 (09:17→13:07)
[2023-07-21] MEDS: MICONAZOLE 2 % POWDER (DESENEX) TOP SCH ×2 (09:17→21:26)
[2023-07-21] MEDS: LIDOCAINE 5% (LIDODERM) PATCH TD SCH (09:18)
[2023-07-21] MEDS: PANTOPRAZOLE 40MG TAB (PROTONIX) PO SCH ×2 (09:18→21:26)
[2023-07-21] MEDS: SENOKOT S TAB PO SCH ×2 (09:19→21:26)
[2023-07-21] MEDS: traMADol 50 MG TAB PO SCH ×2 (09:19→21:26)
[2023-07-21] MEDS: SODIUM CHLORIDE 0.9% INJ 10 ML SYR IV SCH (09:20)
[2023-07-21] MEDS: ACETAMINOPHEN 500 MG TAB PO SCH ×2 (09:20→21:26)
[2023-07-21] MEDS ORDERED: PILL CUTTER 1 EACH XX PRN (11:50)
[2023-07-21] MEDS: oxyCODONE 5MG TAB PO PRN (13:07)
[2023-07-21] MEDS: MORPHINE 4 MG/ML 1ML VIAL IV PRN (17:55)
[2023-07-21 20:04] VITALS: BP 109/69; TEMP 97.7; O2SAT 91
[2023-07-21] MEDS: RAMELTEON 8 MG TAB (ROZEREM) PO PRN (23:12)
[2023-07-22] MEDS: oxyCODONE 5MG TAB PO PRN ×2 (02:30→14:53)
[2023-07-22] MEDS: ONDANSETRON 4MG ORAL DISINTEGRATING TAB SL SCH ×3 (05:03→17:19)
[2023-07-22] MEDS: SODIUM CHLORIDE 3% 500 ML IV SCH (05:30)
[2023-07-22 05:53] LABS: BASO # 0.1 10^3/uL (0.0-0.2); BASO % 0.4 % (0.0-1.0); EOS # 0.2 10^3/uL (0.0-0.5); EOS % 1.3 % (0.0-3.0); HEMATOCRIT 38.8 % (36.0-47.0); HEMOGLOBIN 13.2 g/dl (12.0-15.5); LYMPH # 0.4 10^3/uL (1.5-5.0); LYMPH % 3.3 % (24.0-44.0); MEAN CORPUSCULAR HEMOGLOBIN 34.2 pg (27.0-33.0); MEAN CORPUSCULAR VOLUME 100.5 fl (80.0-96.0); MONO # 1.3 10^3/uL (0.0-0.8); MONO % 11.1 % (2.0-8.0); NEUTROPHILS # 9.7 10^3/uL (1.5-8.5); NEUTROPHILS % 80.9 % (36.0-66.0); PLATELET COUNT, AUTOMATED 366 10^3/uL (150-450); RED BLOOD COUNT 3.86 10^6/uL (4.00-5.40)
[2023-07-22 06:02] VITALS: BP 108/68; TEMP 97.2; O2SAT 93
[2023-07-22 06:18] LABS: CALCIUM LEVEL 8.1 MG/DL (8.3-10.6); CREATININE FOR GFR 2.52 MG/DL (0.55-1.30); GLOMERULAR FILTRATION RATE 19.8 (>39); POTASSIUM SERUM 4.5 MMOL/L (3.5-5.1)
[2023-07-22] MEDS: traMADol 50 MG TAB PO SCH (08:11)
[2023-07-22] MEDS: SENOKOT S TAB PO SCH ×2 (08:12→19:43)
[2023-07-22] MEDS: PANTOPRAZOLE 40MG TAB (PROTONIX) PO SCH ×2 (08:12→19:42)
[2023-07-22] MEDS: METOPROLOL TARTRATE 100MG TAB PO SCH ×2 (08:12→19:44)
[2023-07-22] MEDS: ACETAMINOPHEN 500 MG TAB PO SCH ×2 (08:12→19:42)
[2023-07-22] MEDS: SODIUM CHLORIDE 0.9% INJ 10 ML SYR IV SCH (08:13)
[2023-07-22] MEDS: LIDOCAINE 5% (LIDODERM) PATCH TD SCH (08:13)
[2023-07-22] MEDS: MICONAZOLE 2 % POWDER (DESENEX) TOP SCH ×2 (08:13→19:44)
[2023-07-22 09:35] VITALS: BP 88/64; TEMP 96.6; O2SAT 50
[2023-07-22] MEDS ORDERED: SODIUM CHLORIDE 3% 500 ML IV SCH (12:00)
[2023-07-22 15:03] VITALS: BP 121/72; TEMP 97.5; O2SAT 91
[2023-07-22] MEDS: RAMELTEON 8 MG TAB (ROZEREM) PO PRN (19:42)
[2023-07-22 19:43] VITALS: O2SAT 97
[2023-07-22 19:44] VITALS: BP 111/69
[2023-07-22 19:48] VITALS: BP 111/69; TEMP 97.7
[2023-07-22] MEDS ORDERED: traMADol 50 MG TAB PO SCH (21:00)
[2023-07-22] MEDS ORDERED: GLUCAGON INJ 1MG VIAL As Ordered ONE ×2 (21:48→21:51)
== END 2023-07-22 23:52 | disposition expired | DRG 374 ==
LOC: M ED 11:01 → M ED INP 19:18 → M PCU 22:12 → M MSPAV 07-15 14:52
PROVIDERS: ADMIT Internal Medicine Nephrology; ATTEND Internal Medicine Nephrology
DX: C78.6 Secondary malignant neoplasm of retroperitoneum and peritoneum (principal); J18.9 Pneumonia, unspecified organism; K76.7 Hepatorenal syndrome; J96.01 Acute respiratory failure with hypoxia; J91.0 Malignant pleural effusion; R18.0 Malignant ascites; C34.11 Malignant neoplasm of upper lobe, right bronchus or lung; E87.1 Hypo-osmolality and hyponatremia; E44.0 Moderate protein-calorie malnutrition; E87.4 Mixed disorder of acid-base balance; E87.20 Acidosis, unspecified; E87.3 Alkalosis; R11.2 Nausea with vomiting, unspecified; Z66 Do not resuscitate; I48.0 Paroxysmal atrial fibrillation; K76.0 Fatty (change of) liver, not elsewhere classified; K57.90 Diverticulosis of intestine, part unspecified, without perforation or abscess without bleeding; K44.9 Diaphragmatic hernia without obstruction or gangrene; E78.5 Hyperlipidemia, unspecified; F41.9 Anxiety disorder, unspecified; I95.1 Orthostatic hypotension; K59.09 Other constipation; R29.6 Repeated falls; G25.0 Essential tremor; K21.9 Gastro-esophageal reflux disease without esophagitis; E83.42 Hypomagnesemia; R53.81 Other malaise; R31.9 Hematuria, unspecified; R53.1 Weakness; R33.9 Retention of urine, unspecified; N18.30 Chronic kidney disease, stage 3 unspecified; E87.5 Hyperkalemia; I46.9 Cardiac arrest, cause unspecified; I12.9 Hypertensive chronic kidney disease with stage 1 through stage 4 chronic kidney disease, or unspecified chronic kidney disease; R00.1 Bradycardia, unspecified; D64.9 Anemia, unspecified; M75.51 Bursitis of right shoulder; M75.52 Bursitis of left shoulder; Z86.73 Personal history of transient ischemic attack (TIA), and cerebral infarction without residual deficits; Z79.899 Other long term (current) drug therapy; Z87.891 Personal history of nicotine dependence; Z90.49 Acquired absence of other specified parts of digestive tract; Z88.8 Allergy status to other drugs, medicaments and biological substances; Z79.69 Long term (current) use of other immunomodulators and immunosuppressants; Z79.01 Long term (current) use of anticoagulants; Z95.828 Presence of other vascular implants and grafts; D63.0 Anemia in neoplastic disease; T39.395A Adverse effect of other nonsteroidal anti-inflammatory drugs [NSAID], initial encounter; T45.1X5A Adverse effect of antineoplastic and immunosuppressive drugs, initial encounter

== ENCOUNTER 2023-07-21 14:30 | Outpatient (RCR) | payer MEDICARE ==
[~2023-07-21 14:30] MED LIST changes: +DOCU100C16 PO
== END 2023-07-22 ==
LOC: M ONCR 14:30
PROVIDERS: ATTEND General Practice
DX: Z51.0 Encounter for antineoplastic radiation therapy (principal); C34.81 Malignant neoplasm of overlapping sites of right bronchus and lung